=== PATIENT | female | born 1965 | race Caucasian/White ===

== ENCOUNTER 2017-03-16 21:47 | Emergency (ER) | payer OTHER ==
[~2017-03-16] VITALS: Ht 165.1 cm; Wt 70.9 kg
[2017-03-16 21:49] VITALS: BP 145/88; PULSE 70; RESP 16; O2SAT 100
--- NOTE | 2017-03-16 22:00 | ED.REPORT ---
HPI-Chest Pain 40 and Over Date of Service Mar 16, 2017 ED Provider: Dr. Bowman A 51 year old female with no significant history presents to the ED with rapid heart rate that began suddenly at 2200 this evening while she was sitting down. She felt as though she has had a "gas bubble" across her chest with associated chest pressure, palpitations, lightheadedness, shortness of breath and nausea. The symptoms lasted for approximately three minutes. This is her third episode of similar symptoms. When seen in ED, still has chest pressure but feels better , heart is not racing. The patient was seen once by her PCP for this, but did not arrange follow up. She denies history of hypertension, hyperlipidemia, diabetes or smoking. Nursing Notes Chief Complaint: Chest Pain Nursing Notes Reviewed: Yes Allergies: Coded Allergies: No Known Allergies (Unverified Allergy, Unknown, 05/25/14) General Time Seen by MD: 21:59 Chief Complaint Other (Palpitations) Hx Obtained From: Patient Arrived By: Walk-in Sudden in Onset?: Yes Onset Occurred: Just prior to arrival Symptom Duration: Since onset Recent Healthcare: No recent hospitalization, Recent doctor visit Similar Sx Previous: No Past Medical History Past Medical History Denies: Diabetes mellitus, Hyperlipidemia, Hypertension Past Surgical History Reports: Hysterectomy Smoking History Never Smoker Social History Alcohol Use: "Social" Other Social History: Good social support, Ambulatory Status Independent Review of Systems Respiratory: Reports: Shortness of breath Cardiovascular: Reports: Chest pain ("heaviness"), Palpitations GI: Reports: Nausea, Denies: Abdominal pain, Vomiting Skin: Denies Diaphoresis Neurologic: Reports: Lightheaded Complete sys rev & neg: except as marked. Physical Exam Initial Vital Signs Vital Signs (First) Date Time Temp Pulse Resp B/P Pulse Ox O2 Delivery O2 Flow Rate FiO2 03/16/17 21:49 36.8 70 16 145/88 100 Room Air Initial VS: Reviewed Head / Eyes: Atraumatic, Normocephalic ENT: Mucous membranes moist Extremities: Vascular intact, Neuro intact Skin: Warm, Dry Neurologic: Alert, Oriented Psychiatric: Mood/affect normal General/Constitutional: Awake, Alert, Well appearing Respiratory / Chest: Breath sounds = bilat, No respiratory distress Cardiovascular: Heart rate NL, Regular rhythm, Heart sounds NL, No gallop, No murmurs, No rubs Abdomen: Soft, Non-tender, BS normoactive Interpretation & Diagnostics Lab Results Interpretation Result Diagram: 03/16/17219903/16/[id number] Test 03/16/17 22:00 03/17/17 00:15 White Blood Count 6.4th/mm3 (3.8-10.1) Red Blood Count 3.82mil/mm3 (3.90-5.20) Hemoglobin 12.0g/dL (12.0-15.6) Hematocrit 36.2% (35.0-46.0) Mean Corpuscular Volume 94.8fL (81-100) Mean Corpuscular Hemoglobin 31.4pg (27.0-35.0) Mean Corpuscular Hemoglobin Concent 33.1% (32.0-37.0) Red Cell Distribution Width 12.8% (12.3-15.4) Platelet Count 206bil/L (150-400) Neutrophils (%) (Auto) 38.3% (40-74) Lymphocytes (%) (Auto) 46.2% (14-46) Monocytes (%) (Auto) 11.4% (4-12) Eosinophils (%) (Auto) 3.3% (0-5) Basophils (%) (Auto) 0.6% (0-3) D-Dimer < 0.50mg/L FEU (<0.50) Sodium Level 141mEq/L (134-144) Potassium Level 3.7mEq/L (3.5-5.2) Chloride Level 105mEq/L (97-108) Carbon Dioxide Level 20mmol/L (18-29) Blood Urea Nitrogen 19mg/dL (6-24) Creatinine 0.62mg/dL (0.57-1.00) Estimat Glomerular Filtration Rate 145mL/min (>59) Glucose Level 128mg/dL (60-99) Calcium Level 9.3mg/dL (8.5-10.1) Magnesium Level 2.0mg/dL (1.6-2.6) Total Bilirubin 0.4mg/dL (0.0-1.2) Aspartate Amino Transf (AST/SGOT) 16U/L (0-50) Alanine Aminotransferase (ALT/SGPT) 13U/L (0-32) Alkaline Phosphatase 44U/L (25-150) Total Protein 7.0g/dL (6.4-8.4) Albumin 4.3g/dL (3.4-5.0) ECG Interpretation Time: 10:00 Interpreted by: ED physician Normal ECG Interpretation: Normal sinus rhythm (60) X-Ray Chest Interpretation Chest Xray Interpretation: no acute disease Interpretation / Wet Read by: Wet read ED physician Re-Eval/Medical Decision Time of Eval: 23:35 Patient Status: Condition improved Re-Evaluation/Progress Note: Patient is feeling better with relief of symptoms. Plan for discharge is discussed. The patient understands and agrees with the plan. All questions have been answered at this time. Counseled Regarding: Diagnosis, Lab results, Need for follow-up, When/why to return to ED Discharge & Departure Primary Impression: Chest pain Chest pain type: precordial pain Qualified Code: R07.2 - Precordial pain Additional Impression: Palpitations Disposition: Home Discharge Condition All VS Reviewed: Yes Condition: Stable Patient Instructions: Chest Pain (ED) Additional Instructions: Emergency Department evaluation included interview, examination, ECG labs and chest x-ray. No evidence for a serious heart or lung problem is identified today, episodes of a rapid heart rate are suggestive of an abnormal heart rhythm , at present heart rhythm and normal it will be important to have an EKG done while symptomatic. Follow-up with primary care as soon as possible, they may be able to refer you for an ambulatory heart monitor which could also be helpful. We are symptomatic, if possible check your pulse noting the rate and whether pulse is regular or irregular. Return to emergency department if you have recurrent symptoms. Referrals: AMINA HALL MD Attestation Portions of this note were transcribed by Simon Tavares and Courtney Castillo. I, Dr. Bowman personally performed the history, physical exam and medical decision- making; I reviewed and confirmed the accuracy of the information in the transcribed note. Signed by: Ladonna Bro, 03/17/17 and 0027. copies to: AMINA HALL MD, Donald L MD Mar 16, 2017 22:00 Simon Tavares Mar 16, 2017 22:32 COURTNEY CASTILLO Mar 17, 2017 00:25 Yasmany Bowman MD Mar 16, 2017 22:00 Simon Tavares Mar 16, 2017 22:32 COURTNEY CASTILLO Mar 17, 2017 00:25
[2017-03-16 22:14] LABS: BASOPHILS % (AUTO) 0.6 % (0-3); EOSINOPHILS % (AUTO) 3.3 % (0-5); MONOCYTES % (AUTO) 11.4 % (4-12); Mean Corpuscular Hemoglobin 31.4 pg (27.0-35.0); Mean Corpuscular Volume 94.8 fL (81-100); NEUTROPHILS % (AUTO) 38.3 % (40-74); Platelet Count 206 bil/L (150-400)
[2017-03-16 22:34] LABS: TROPONIN T 0.01 ug/L (0.0-0.011)
[2017-03-17 00:39] VITALS: PULSE 58; RESP 16; O2SAT 98
[2017-03-17 01:30] VITALS: BP 119/64; PULSE 62; RESP 16; O2SAT 98
--- NOTE | 2017-03-17 08:55 | DRSVH ---
PROCEDURE: X-RAY CHEST ONE VIEW, PORTABLE ([id number]) INDICATIONS: chest pain, difficulty breathing TECHNIQUE: One view of the chest was acquired. COMPARISON: None. FINDINGS: Surgical changes and devices: None. Lungs and pleura: No pleural effusions or pneumothorax. Lungs are clear. Mediastinum: Mediastinal contours appear normal. Heart size is normal. Bones and chest wall: No suspicious bony lesions. Overlying soft tissues appear unremarkable. IMPRESSION: No acute cardiopulmonary disease. Dictated by: Jameson Archer [facility] Interpreted: Mani Boyd MD on 03/17/2017 at 8:54 Transcribed by: SOLOMON on 03/17/2017 at 8:54 Approved by: Mani Boyd M.D. on 03/17/2017 at 15:39
== END 2017-03-17 01:31 | disposition home or self-care (01) ==
LOC: SED 21:47
DX: R07.2 Precordial pain (principal); R00.2 Palpitations

== ENCOUNTER 2017-04-22 16:16 | Emergency (ER) | payer OTHER ==
[~2017-04-22] VITALS: Ht 165.1 cm; Wt 69.5 kg
[2017-04-22 16:18] VITALS: BP 125/81; PULSE 58; RESP 16; O2SAT 99
[2017-04-22] MEDS ORDERED: diphenhydrAMINE 25 mg Capsule PO ONE (16:20)
--- NOTE | 2017-04-22 17:42 | ED.REPORT ---
HPI-Allergic Reaction Date of Service Apr 22, 2017 ED Provider: Gabriel Dupree PAC Nursing Notes Stated Complaint: POSS ALLERGIC REACTION Chief Complaint: Allergic Reaction Nursing Notes Reviewed: Yes Allergies: Coded Allergies: No Known Allergies (Verified Allergy, Unknown, 04/22/17) General Time Seen by MD: 16:32 Chief Complaint Swelling throat Pt. reports onset of feeling of tongue swelling after receiving steroid injection in R wrist at 2PM. Symptoms now resolved after PO benadryl. No known previous ADR to steroids. Hx Obtained From: Patient Arrived By: Walk-in Onset Occurred: 1 - 4 hours ago Context of Onset: New medication Symptom Duration: Since onset Progression Since Onset: Improved after OTC med, Resolved Severity: Current: No pain currently Severity: Maximum: No pain Recent Healthcare: Recent doctor visit Similar Sx Previous: No Past Medical History Past Medical History R wrist tendonitis Past Surgical History Reports: Hysterectomy Smoking History Never Smoker Social History Alcohol Use: "Social" Other Social History: Good social support, Ambulatory Status Independent Review of Systems Constitutional: Denies: Chills, Fever Ears / Nose / Throat: Reports: Tongue swelling, Denies: Voice change Respiratory: Denies: Shortness of breath, Wheezing GI: Denies: Abdominal pain Neurologic: Denies: Focal weakness Complete sys rev & neg: except as marked. Physical Exam Initial Vital Signs Vital Signs (First) Date Time Temp Pulse Resp B/P Pulse Ox O2 Delivery O2 Flow Rate FiO2 04/22/17 16:18 36.4 58 16 125/81 99 Room Air Initial VS: Reviewed General/Constitutional: Awake, Alert, No acute distress Respiratory / Chest: Atraumatic, Breath sounds NL, Breath sounds = bilat, No respiratory distress Cardiovascular: Regular rhythm, Heart sounds NL Heart Rate / Rhythm: Positive: Bradycardia Skin: No rash Re-Eval/Medical Decision Med Decision/Clinical Course Spontaneously resolved allergic reaction to R wrist steroid injection, no need for further medical intervention at present. Advised PO benadryl at bedtime tonight. Return to ED if any problems. Counseled Regarding: Diagnosis, Need for follow-up, When/why to return to ED Discharge & Departure Shift Change Sign-Out Response to Therapy: Improved Primary Impression: Allergic reaction Encounter type: initial encounter Qualified Code: T78.40XA - Allergy, unspecified, initial encounter Disposition: Home Patient Instructions: General Allergic Reaction (ED) Additional Instructions: Take an oral Benadryl capsule tonight before bed. Follow up with your doctor tomorrow if not totally resolved. Return to ER if anything worsens. Referrals: AMINA HALL MD (PCP) 1 Day if not improving as expected EDSupervising Provider for APC: Akhil Mc Christopher R PAC Apr 22, 2017 17:42
[2017-04-22 17:54] VITALS: BP 117/74; PULSE 65; O2SAT 97
== END 2017-04-22 17:55 | disposition home or self-care (01) ==
LOC: SED 16:16
DX: R22.0 Localized swelling, mass and lump, head (principal); T38.0X5A Adverse effect of glucocorticoids and synthetic analogues, initial encounter; X58.XXXA Exposure to other specified factors, initial encounter; Y93.89 Activity, other specified; Y99.8 Other external cause status; Y92.019 Unspecified place in single-family (private) house as the place of occurrence of the external cause; M65.88 Other synovitis and tenosynovitis, other site; Z90.710 Acquired absence of both cervix and uterus; Z88.8 Allergy status to other drugs, medicaments and biological substances

== ENCOUNTER 2017-04-25 18:15 | Emergency (ER) | payer OTHER ==
[~2017-04-25] VITALS: Ht 165.1 cm; Wt 69.1 kg
[2017-04-25 18:28] VITALS: BP 128/80; PULSE 73; RESP 16; O2SAT 96
--- NOTE | 2017-04-25 18:50 | ED.REPORT ---
HPI-Abd Pain F 40 and Over Date of Service Apr 25, 2017 ED Provider: Kim Perea History of Present Illness: 51-year-old female here for epigastric pain for over a month. Today it worsened and she was eating a few bites of lettuce and vomited there was a few what she thinks to be blood streaks in her emesis. For the last month she would feel full after just a few bites of food, and have abdominal bloating after just a few bites of food. She saw her doctor and got a trial of ranitidine with no results. Her doctor did blood as well but has not reviewed this with her. She is having constipation and taking stool softener laxatives for this. She did have a firm BM today. She feels like her upper abdomen is not talking to her lower abdomen she states. No history of GI surgeries beside the hysterectomy and C-sections. No fever or urinary symptoms. Pain increases after eating and feels tight and squeezing around her upper abdomen Nursing Notes Stated Complaint: THREW UP BLOOD Chief Complaint: Female Abdominal Pain Nursing Notes Reviewed: Yes Allergies: Coded Allergies: prednisone (Verified Allergy, Mild, 04/25/17) Scheduled Pantoprazole DR (Protonix) 20 Mg Tablet 20 MG PO BID General Time Seen by MD: 18:43 Chief Complaint Abdominal pain, Vomiting mild Hx Obtained From: Patient Arrived By: Walk-in Sudden in Onset?: No Onset Occurred: More than a week ago... (1 month) Context of Onset: Eating Symptom Duration: Waxes and wanes Progression since Onset: Intermittent Location: : Epigastric Severity: Current: Moderate Severity: Maximum: Severe Associated with: Reports: Nausea, Vomiting Pertinent Negative: Pt denies other symptoms Recent Healthcare: Recent doctor visit Similar Sx Previous: Yes Past Medical History Past Medical History R wrist tendonitis Past Surgical History Reports: Hysterectomy Smoking History Never Smoker Social History Alcohol Use: "Social" Other Social History: Good social support, Ambulatory Status Independent Review of Systems Basic Review of Systems Eyes: Vision NL, No discharge ENT: Hearing NL, No pain, No nasal congestion, No pharyngeal pain Hematologic: No bleeding, No bruising Endocrine: No cold intolerance, No heat intolerance, No weight gain, No weight loss Skin: No bruising, No rash, No itch Allergy / Immune: No allergy Neurologic: NL mental status, No weakness, No numbness Psychiatric: Normal thought content Constitutional: Denies: Chills, Fatigue, Fever Respiratory: Denies: Dyspnea on exertion, Non-productive cough Cardiovascular: Denies: Chest pain, Edema GI: Reports: Abdominal pain, Constipation, Hematochezia, Nausea, Vomiting, Denies: Diarrhea, Melena Female: Denies: Dysuria Musculoskeletal: Denies: Back pain Complete sys rev & neg: except as marked. Physical Exam Vital Signs Vital Signs (First) Date Time Temp Pulse Resp B/P Pulse Ox O2 Delivery O2 Flow Rate FiO2 04/25/17 18:28 36.9 73 16 128/80 96 Room Air Initial VS: Reviewed, Vital signs normal General/Constitutional: Awake, Alert Respiratory / Chest: Breath sounds NL, Breath sounds = bilat, No respiratory distress, No rales, No rhonchi, No wheezing, No stridor Cardiovascular: Heart rate NL, Regular rhythm, Heart sounds NL, Peripheral circulation NL Abdomen: Atraumatic, Soft, No guarding, No rebound, BS normoactive, No distention, No hernia, No palpable mass, No pulsatile mass Tenderness/Guarding/Rebound: Positive: Tender LUQ... (Mild), Tender RUQ... ( Mild), Tender epigastric Back: Inspection NL, Non-tender, No CVA tenderness Head / Eyes: Normocephalic, PERRL Skin: Color NL, Warm, Dry, Turgor NL Interpretation & Diagnostics Lab Results Interpretation Result Diagram: 04/25/17184904/25/[id number] Test 04/25/17 18:50 White Blood Count 5.7th/mm3 (3.8-10.1) Red Blood Count 4.03mil/mm3 (3.90-5.20) Hemoglobin 12.6g/dL (12.0-15.6) Hematocrit 37.5% (35.0-46.0) Mean Corpuscular Volume 93.1fL (81-100) Mean Corpuscular Hemoglobin 31.3pg (27.0-35.0) Mean Corpuscular Hemoglobin Concent 33.6% (32.0-37.0) Red Cell Distribution Width 12.6% (12.3-15.4) Platelet Count 244bil/L (150-400) Neutrophils (%) (Auto) 55.2% (40-74) Lymphocytes (%) (Auto) 33.0% (14-46) Monocytes (%) (Auto) 9.4% (4-12) Eosinophils (%) (Auto) 1.7% (0-5) Basophils (%) (Auto) 0.7% (0-3) Sodium Level 139mEq/L (134-144) Potassium Level 3.8mEq/L (3.5-5.2) Chloride Level 102mEq/L (97-108) Carbon Dioxide Level 23mmol/L (18-29) Blood Urea Nitrogen 15mg/dL (6-24) Creatinine 0.64mg/dL (0.57-1.00) Estimat Glomerular Filtration Rate 140mL/min (>59) Glucose Level 121mg/dL (60-99) Calcium Level 9.3mg/dL (8.5-10.1) Magnesium Level 2.2mg/dL (1.6-2.6) Total Bilirubin 0.6mg/dL (0.0-1.2) Aspartate Amino Transf (AST/SGOT) 17U/L (0-50) Alanine Aminotransferase (ALT/SGPT) 14U/L (0-32) Alkaline Phosphatase 51U/L (25-150) Total Protein 7.6g/dL (6.4-8.4) Albumin 4.3g/dL (3.4-5.0) Lipase 52U/L (13-60) Hold Ayala Top Tube Received (Received) X-Ray Abdominal Interpretation PROCEDURE: X-RAY ACUTE ABDOMINAL SERIES ([id number]) INDICATIONS: abd pain TECHNIQUE: One view chest and two views of the abdomen were acquired. COMPARISON: None. FINDINGS: Surgical changes and devices: None. Chest: Lungs are clear. Heart size is normal. No pleural effusions. No pneumoperitoneum. Abdomen: Bowel gas pattern is normal. No suspicious calcifications. Visualized solid organ contours appear normal. Bones: No suspicious bony lesions. IMPRESSION: No source of current abdominal pain is found. Mild colonic obstipation. Re-Eval/Medical Decision Med Decision/Clinical Course US TEch reports normal US. report not back by time of d/c. Patient pain free after GI cocktail. We will refer her to GI for further study she needs an upper endoscopy. Discharge & Departure Shift Change Sign-Out Laboratory Evaluation: Lab evaluation discussed Imaging Studies: Imaging discussed Response to Therapy: Improved Primary Impression: GERD (gastroesophageal reflux disease) Esophagitis presence: esophagitis presence not specified Qualified Code: K21.9 - Gastro-esophageal reflux disease without esophagitis Additional Impression: Constipation Constipation type: unspecified constipation type Qualified Code: K59.00 - Constipation, unspecified Disposition: Home Discharge Condition All VS Reviewed: Yes Condition: Stable Patient Instructions: Gastritis (ED) Additional Instructions: Take prescription medication as directed for 2 weeks. Follow-up with your PCP this week. You should make an appointment with GI for an upper endoscopy and further evaluation. Return if fevers, severe pain or worsening in condition at all. Otherwise light diet that is bland in small amounts. Treat her constipation with stool softeners and laxatives as discussed. Increase exercise and fluid intake Referrals: AMINA HALL MD (PCP) EDSupervising Provider for APC: Clint Syed MD copies to: AMINA HALL MD, Linnea K ARNP Apr 25, 2017 18:50
[2017-04-25] MEDS ORDERED: LidocaineVisc 2%:Antacid 1:1 10 mL Syringe PO SCH (19:00)
[2017-04-25 19:04] LABS: BASOPHILS % (AUTO) 0.7 % (0-3); EOSINOPHILS % (AUTO) 1.7 % (0-5); MONOCYTES % (AUTO) 9.4 % (4-12); Mean Corpuscular Hemoglobin 31.3 pg (27.0-35.0); Mean Corpuscular Volume 93.1 fL (81-100); NEUTROPHILS % (AUTO) 55.2 % (40-74); Platelet Count 244 bil/L (150-400)
[2017-04-25 19:28] LABS: Magnesium 2.2 mg/dL (1.6-2.6)
--- NOTE | 2017-04-25 19:31 | DRSVH ---
PROCEDURE: X-RAY ACUTE ABDOMINAL SERIES ([id number]) INDICATIONS: abd pain TECHNIQUE: One view chest and two views of the abdomen were acquired. COMPARISON: None. FINDINGS: Surgical changes and devices: None. Chest: Lungs are clear. Heart size is normal. No pleural effusions. No pneumoperitoneum. Abdomen: Bowel gas pattern is normal. No suspicious calcifications. Visualized solid organ contour s appear normal. Bones: No suspicious bony lesions. IMPRESSION: No source of current abdominal pain is found. Mild colonic obstipation. Dictated by: Mani Boyd M.D. on 04/25/2017 at 19:29 Approved by: Mani Boyd M.D. on 04/25/2017 at 19:29
[2017-04-25] MEDS ORDERED: LidocaineVisc 2%:Antacid 1:1 10 mL Syringe PO ONE (20:15)
[2017-04-25] MEDS ORDERED: PANT20T PO (20:38)
[2017-04-25 20:52] VITALS: BP 112/77; PULSE 74; RESP 16; O2SAT 97
--- NOTE | 2017-04-25 21:12 | DRSVH ---
PROCEDURE: US ABDOMEN ([id number]) INDICATIONS: epigastric pain TECHNIQUE: Real-time scanning was performed of the abdominal and retroperitoneal organs, with image documentatio n. COMPARISON: [facility], CR, XR ABD ACUTE SERIES 3VW, 04/25/2017, 19:14. FINDINGS: Liver: Liver is normal in size and homogeneous in echotexture. Gallbladder: There is no sign of biliary obstruction or acute cholecystitis. A small gallbladder wa ll polyp is present measuring 4 mm. Biliary ducts: Intrahepatic bile ducts are non-dilated. Extrahepatic bile duct caliber measures 6.3 mm. Normal is 6-7 mm or less in diameter, or 10 mm or less post-cholecystectomy. Pancreas: Visualized portions of the pancreas are sonographically normal. Spleen: Spleen is normal in size and homogeneous in echotexture. Kidneys: Kidneys are normal in size and echotexture. Right kidney measures 9.9 cm long; left kidney measures 12.2 cm long. No hydronephrosis or nephrolithiasis. No solid masses. The left kidney con tains 2 cysts, simple, the largest of which measures up to 3.5 cm Aorta: Visualized aorta is normal in caliber at less than 3 cm. Iliacs: Poorly seen due to overlying bowel gas IVC: Intrahepatic inferior vena cava is patent. Miscellaneous: No free abdominal fluid. IMPRESSION: Single 4 mm polyp gallbladder wall, no sign of biliary obstruction or acute cholecystiti s. 2 simple cysts at the left kidney, 3.5 cm in maximal dimension but simple in appearance. Finally , the iliac arteries could not be seen due to bowel gas. A definite source for current epigastric pa in and tenderness is not found. Dictated by: Mani Boyd M.D. on 04/25/2017 at 21:08 Approved by: Mani Boyd M.D. on 04/25/2017 at 21:10
== END 2017-04-25 20:54 | disposition home or self-care (01) ==
LOC: SED 18:15
DX: K21.9 Gastro-esophageal reflux disease without esophagitis (principal); K59.00 Constipation, unspecified; Z88.8 Allergy status to other drugs, medicaments and biological substances

== ENCOUNTER 2017-05-19 21:06 | Emergency (ER) | payer OTHER ==
[~2017-05-19] VITALS: Ht 165.1 cm; Wt 65.9 kg
[~2017-05-19 21:06] MED LIST: PANT20T PO
[2017-05-19 21:09] VITALS: BP 126/92; PULSE 60; RESP 15; O2SAT 100
[2017-05-19 21:39] VITALS: BP 122/76
--- NOTE | 2017-05-19 22:06 | ED.REPORT ---
HPI-General Illness Date of Service May 19, 2017 ED Provider: Yosvany Garnett Patient is an otherwise healthy 51 year old female who presents to the ED complaining of palpitations onset just prior to arrival. Associated symptoms include feeling shaky and L arm numbness. She denies chest pain, SOB, vomiting, hematemesis, or any other symptoms. Nursing Notes Stated Complaint: RAPID HEART BEAT Chief Complaint: General Complaint Nursing Notes Reviewed: Yes Allergies: Coded Allergies: prednisone (Verified Allergy, Mild, 05/19/17) Scheduled Pantoprazole DR (Protonix) 20 Mg Tablet 20 MG PO BID General Time Seen by MD: 22:06 Chief Complaint Other (palptations ) Hx Obtained From: Patient Arrived By: Walk-in Sudden in Onset?: Yes Onset Occurred: 1 - 4 hours ago Severity: Current: No pain currently Severity: Maximum: No pain Pertinent Negative: Pt denies other symptoms Past Medical History Past Medical History R wrist tendonitis Past Surgical History Reports: Hysterectomy Smoking History Never Smoker Social History Alcohol Use: "Social" Other Social History: Good social support, Ambulatory Status Independent Review of Systems Full Review of Systems Respiratory: Denies: Shortness of breath Cardiovascular: Reports: Palpitations, Denies: Chest pain GI: Denies: Vomiting Neurologic: Reports: Numbness (L arm ), Shaking Complete sys rev & neg: except as marked. Physical Exam Vital Signs Vital Signs Date Time Temp Pulse Resp B/P Pulse Ox O2 Delivery O2 Flow Rate FiO2 05/19/17 23:53 36.7 74 14 124/74 98 Room Air 05/19/17 21:39 122/76 05/19/17 21:09 36.7 60 15 126/92 100 Room Air Initial VS: Reviewed, Vital signs normal Head / Eyes: Atraumatic, Normocephalic Neck: Full range of motion Skin: Warm, Dry Neurologic: Alert, Oriented, Nonfocal Psychiatric: Mood/affect normal, Behavior normal, Normal thought content General/Constitutional: Awake, Alert, No acute distress, Well appearing, Well developed, Well hydrated Respiratory / Chest: Breath sounds NL, Breath sounds = bilat, No respiratory distress Cardiovascular: Heart rate NL, Regular rhythm, Heart sounds NL, No gallop, No murmurs, No rubs Lower Extremity / Pelvis / MS: No edema No cords peripherally Interpretation & Diagnostics Lab Results Interpretation Result Diagram: 05/19/17222405/19/172224 Test 05/19/17 22:25 05/19/17 22:55 White Blood Count 5.3th/mm3 (3.8-10.1) Red Blood Count 3.83mil/mm3 (3.90-5.20) Hemoglobin 12.0g/dL (12.0-15.6) Hematocrit 35.8% (35.0-46.0) Mean Corpuscular Volume 93.5fL (81-100) Mean Corpuscular Hemoglobin 31.3pg (27.0-35.0) Mean Corpuscular Hemoglobin Concent 33.5% (32.0-37.0) Red Cell Distribution Width 12.6% (12.3-15.4) Platelet Count 198bil/L (150-400) Neutrophils (%) (Auto) 47.8% (40-74) Lymphocytes (%) (Auto) 38.1% (14-46) Monocytes (%) (Auto) 10.8% (4-12) Eosinophils (%) (Auto) 2.5% (0-5) Basophils (%) (Auto) 0.8% (0-3) Prothrombin Time 11.4sec (8.1-12.5) Prothromb Time International Ratio 1.06ratio Activated Partial Thromboplast Time 25.0sec (22.8-33.0) Sodium Level 139mEq/L (134-144) Potassium Level 3.7mEq/L (3.5-5.2) Chloride Level 102mEq/L (97-108) Carbon Dioxide Level 25mmol/L (18-29) Blood Urea Nitrogen 14mg/dL (6-24) Creatinine 0.61mg/dL (0.57-1.00) Estimat Glomerular Filtration Rate 148mL/min (>59) Glucose Level 121mg/dL (60-99) Calcium Level 9.5mg/dL (8.5-10.1) Magnesium Level 2.1mg/dL (1.6-2.6) Total Bilirubin 0.5mg/dL (0.0-1.2) Aspartate Amino Transf (AST/SGOT) 17U/L (0-50) Alanine Aminotransferase (ALT/SGPT) 13U/L (0-32) Alkaline Phosphatase 49U/L (25-150) Troponin T 0.010ug/L (0.0-0.011) Pro-B-Type Natriuretic Peptide 106.1pg/mL (0-249) Total Protein 7.2g/dL (6.4-8.4) Albumin 4.2g/dL (3.4-5.0) Thyroid Stimulating Hormone (TSH) 3.460uIU/mL (0.450-4.500) Free Thyroxine 1.20ng/dL (0.82-1.77) Hold Ayala Top Tube Received (Received) Hold Urine Received (Received) ECG Interpretation ECG Interpretation: Sinus rate 68 Time: 22:06 Interpreted by: ED physician X-Ray Chest Interpretation Chest Xray Interpretation: negative View: Portable, 1 view Interpretation / Wet Read by: Interpret - ED physician Re-Eval/Medical Decision Med Decision/Clinical Course 51-year-old history of anxiety presents with palpitations tonight. these have been self-limited, and not observed here. Labs are reassuring including normal electrolytes and magnesium. Thyroid functions were normal. There may or may not above dysrhythmia, but she describes a tachycardic event that was likely sinus tachycardia. PSVT cannot be excluded at this point. Home for follow-up with PCP and Holter monitoring if symptoms are persistent/recurrent. Time of Eval: 23:26 Re-Evaluation/Progress Note: Discussed plan for discharge. Patient understands and agrees with plan. All questions addressed at this time. Counseled Regarding: Diagnosis, Lab results, Need for follow-up, When/why to return to ED Discharge & Departure Primary Impression: Palpitations Additional Impression: Anxiety Disposition: Home Discharge Condition All VS Reviewed: Yes Condition: Improved Additional Instructions: We did not detect any abnormalities of your rhythm during your observation period here. Your labs are reassuring. Cardiogram is normal. This may just have been a stress response, and may have been an actual rhythm disturbance such as SVT. If you continue to have problems with this, follow up with your doctor for a Holter monitor exam. Return anytime for sustained rapid beats, so the we can record them. Referrals: AMINA HALL MD (PCP) Scribe Attestation Portions of this note were transcribed by Alaina Woodson. I, Dr. Garnett personally performed the history, physical exam and medical decision-making; I reviewed and confirmed the accuracy of the information in the transcribed note. Signed by: Alaina Woodson 05/19/2017, [id number] copies to: AMINA HALL MD, Christopher W MD May 19, 2017 22:06 ALAINA WOODSON May 19, 2017 22:12
[2017-05-19] MEDS ORDERED: 0.9% Sodium Chloride 1,000 ML IV ONE (22:11)
[2017-05-19 22:46] LABS: BASOPHILS % (AUTO) 0.8 % (0-3); EOSINOPHILS % (AUTO) 2.5 % (0-5); MONOCYTES % (AUTO) 10.8 % (4-12); Mean Corpuscular Hemoglobin 31.3 pg (27.0-35.0); Mean Corpuscular Volume 93.5 fL (81-100); NEUTROPHILS % (AUTO) 47.8 % (40-74); Platelet Count 198 bil/L (150-400)
[2017-05-19 23:00] LABS: INR 1.06 ratio
[2017-05-19 23:05] LABS: TROPONIN T 0.01 ug/L (0.0-0.011)
[2017-05-19 23:16] LABS: Magnesium 2.1 mg/dL (1.6-2.6)
[2017-05-19 23:53] VITALS: BP 124/74; PULSE 74; RESP 14; O2SAT 98
--- NOTE | 2017-05-20 08:48 | DRSVH ---
PROCEDURE: X-RAY CHEST ONE VIEW, PORTABLE ([id number]) INDICATIONS: palpitations TECHNIQUE: One view of the chest was acquired. COMPARISON: [facility], CR, XR CHEST 1VW (PORTABLE), 03/16/2017, 22:02. FINDINGS: Surgical changes and devices: None. Lungs and pleura: No pleural effusions or pneumothorax. Lungs are clear. Mediastinum: Mediastinal contours appear normal. Heart size is normal. Bones and chest wall: No suspicious bony lesions. Overlying soft tissues appear unremarkable. IMPRESSION: No acute cardiopulmonary disease. Dictated by: Jameson Archer [facility] Interpreted: Nadine Bentley MD on 05/20/2017 at 8:46 Transcribed by: TL on 05/20/2017 at 8:47 Approved by: Nadine Bentley MD, PhD on 05/20/2017 at 9:46
== END 2017-05-19 23:54 | disposition home or self-care (01) ==
LOC: SED 21:06
DX: R00.2 Palpitations (principal); F41.9 Anxiety disorder, unspecified; Z88.8 Allergy status to other drugs, medicaments and biological substances
CPT/HCPCS: 36415; 71010; 80053; 83735; 83880; 84439; 84443; 84484; 85025; 85610; 85730; 93005; 96360; 99285; J7030

== ENCOUNTER 2017-06-11 01:33 | Emergency (ER) | payer OTHER ==
[~2017-06-11] VITALS: Ht 165.1 cm; Wt 64.5 kg
[2017-06-11 01:37] VITALS: BP 125/79; PULSE 57; RESP 16; O2SAT 100
--- NOTE | 2017-06-11 01:58 | ED.REPORT ---
HPI-Dyspnea / Wheezing Date of Service Jun 11, 2017 ED Provider: Clint Syed MD A 52 year old female with a history of hypertension presents to the ED complaining of shortness of breath. The pt woke one ho with sudden onset shortness of breath. She then became chilled and shaky, though she believes that these symptoms may have been related to anxiety. The denies heartburn symptoms such as burning in her throat during this episode, as well as nausea or fever. The pt took Tums, which helped to relieve her symptoms. In the ED, the pt's initial symptoms have resolved and she is only complaining of a dry mouth and mild cough. She has also experienced a 15 pound weight loss since 2016, but does not believe that this is related. Nursing Notes Stated Complaint: DIFFICULTY BREATHING Chief Complaint: Respiratory Complaints Nursing Notes Reviewed: Yes ([place], [facility] not reconciled) Allergies: Coded Allergies: prednisone (Verified Allergy, Mild, 06/11/17) Scheduled Pantoprazole DR (Protonix) 20 Mg Tablet 20 MG PO BID General Time Seen by MD: 01:57 Chief Complaint Shortness of breath Hx Obtained From: Patient Arrived By: Walk-in Sudden in Onset?: Yes Onset Occurred: 1 - 4 hours ago Recent Healthcare: Recent doctor visit Similar Sx Previous: No Risk Factors PE Risk Stratification No Coagulation Disorder, No Estrogen Medicine / BCP's, No [place], No Immobilization, No Malignancy, No , No , No Previous DVT, No Previous PE, No Surgery Last 60 Days, No Trauma Risk factors reviewed, No risk factors Past Medical History Past Medical History Notes: 4 ED visits in past 2 months Past Medical History R wrist tendonitis Reports: Hypertension Past Surgical History Reports: Hysterectomy Smoking History Never Smoker Social History Alcohol Use: "Social" Other Social History: Good social support, Ambulatory Status Independent Review of Systems Review of Systems Note: dry mouth Constitutional: Reports: Chills, Recent wt loss, Denies: Fever Respiratory: Reports: Non-productive cough, Shortness of breath Cardiovascular: Denies: Chest pain Musculoskeletal: Denies: Back pain, Neck pain Skin: Denies Rash Complete sys rev & neg: except as marked. GI: Denies: Abdominal pain, Nausea Physical Exam Initial Vital Signs Vital Signs (First) Date Time Temp Pulse Resp B/P Pulse Ox O2 Delivery O2 Flow Rate FiO2 06/11/17 01:37 36.8 57 16 125/79 100 Room Air Initial VS: Reviewed, Vital signs normal General/Constitutional: Awake, Alert Neck: Atraumatic, Supple, Full range of motion Respiratory / Chest: Atraumatic, Breath sounds NL, Breath sounds = bilat, No respiratory distress Cardiovascular: Heart rate NL, Regular rhythm, Heart sounds NL ENT: Atraumatic, Airway patent, Mucous membranes moist Abdomen: Atraumatic, Soft, Non-tender Back: Atraumatic, Full range of motion Lower Extremity / Pelvis / MS: Atraumatic, Full range of motion Skin: Atraumatic, Color NL, No rash, Warm, Dry Neurologic: Oriented X3, Speech NL, No motor deficits, No sensory deficits Head / Eyes: Atraumatic, Normocephalic, PERRL, EOMI Upper Extremity / MS: Atraumatic, Full range of motion Psychiatric: Affect NL, Mood NL Interpretation & Diagnostics X-Ray Chest Interpretation Chest Xray Interpretation: no acute findings Interpretation / Wet Read by: Interpret - ED physician Re-Eval/Medical Decision Med Decision/Clinical Course This is a pleasant 52-year-old female who presents complaining of an episode of shortness of breath or she was woken suddenly from sleep with a sense of suffocation. Symptoms were transient and have resolved, but she was afraid to go back to sleep so came to the emergency department. She does report that she has had being worked up for an unexplained epigastric discomfort in 15 pound weight loss, has had negative endoscopy and CT imaging, but has outpatient laboratories for reevaluation of the pancreas ordered for later today. She reports she generally been doing well, had no symptoms prior to going to sleep. She has been diagnosed with recent GERD, so she did take an antacid after this event happened-but she did not have the clear reflux symptoms she has had before. She does not have a prior history of laryngeal spasm or asthma. She has no risk factors for PE or venous thromboembolism. On exam she appears well, vitals are normal. She is anxious. Lungs are clear no bronchospasm, abdomen soft and nontender. EKG, chest x-ray, labs have been ordered, but had not been completed and the patient's being turned over to Dr. Xie pending review of laboratory studies. Source of Hx: Old records Differential Diagnosis: Positive: Acute coronary syndrome Counseled Regarding: Diagnosis, Need for follow-up, When/why to return to ED Discharge & Departure Shift Change Sign-Out Patient Care Transferred: Yes Discussed Complaint(s): Yes Laboratory Evaluation: Ordered, not yet done Imaging Studies: Ordered, not yet done Impression: Primary Impression: Dyspnea Dyspnea type: unspecified Qualified Code: R06.00 - Dyspnea, unspecified Disposition: Home Discharge Condition All VS Reviewed: Yes Condition: Stable Referrals: AMINA HALL MD (PCP) Care Transferred to: Dr Xie Care Transferred at: 03:00 Ladonna Attestation Portions of this note were transcribed by Courtney Castillo. I, Dr. Syed personally performed the history, physical exam and medical decision-making; I reviewed and confirmed the accuracy of the information in the transcribed note. Signed by: Ladonna Vogel, 06/11/2017 and 0200. copies to: AMINA HALL MD, Matthew F MD Jun 11, 2017 01:57 COURTNEY CASTILLO Jun 11, 2017 02:05
[2017-06-11 03:27] LABS: BASOPHILS % (AUTO) 0.3 % (0-3); EOSINOPHILS % (AUTO) 1.5 % (0-5); Mean Corpuscular Hemoglobin 31.3 pg (27.0-35.0); Mean Corpuscular Volume 94.3 fL (81-100); NEUTROPHILS % (AUTO) 63.6 % (40-74); Platelet Count 218 bil/L (150-400)
[2017-06-11 04:37] LABS: TROPONIN T 0.01 ug/L (0.0-0.011)
--- NOTE | 2017-06-11 08:10 | DRSVH ---
PROCEDURE: X-RAY CHEST, TWO VIEWS ([id number]) INDICATIONS: SHORT OF BREATH TECHNIQUE: 2 views of the chest were acquired. COMPARISON: 05/19/2017 FINDINGS: Surgical changes and devices: None. Lungs and pleura: No pleural effusions or pneumothorax. Lungs are clear. Mediastinum: Mediastinal contours are normal. Heart size is normal. Bones and chest wall: No suspicious bony abnormalities. Soft tissues appear unremarkable. IMPRESSION: Normal chest Findings are concordant with the preliminary reading. Dictated by: Catracho Quezada M.D. on 06/11/2017 at 8:07 Approved by: Catracho Quezada M.D. on 06/11/2017 at 8:08
== END 2017-06-11 05:08 | disposition home or self-care (01) ==
LOC: SED 01:33
DX: R06.00 Dyspnea, unspecified (principal); R68.2 Dry mouth, unspecified; I10 Essential (primary) hypertension; Z88.8 Allergy status to other drugs, medicaments and biological substances

== ENCOUNTER 2017-06-23 04:47 | Emergency (ER) | payer OTHER ==
[~2017-06-23] VITALS: Ht 165.1 cm; Wt 64.5 kg
[2017-06-23 04:51] VITALS: BP 132/70; PULSE 57; RESP 16; O2SAT 100
--- NOTE | 2017-06-23 05:03 | ED.REPORT ---
HPI-General Illness Date of Service Jun 23, 2017 ED Provider: Sabas Xie MD Pt is a 52 y/o female w/ a hx of HTN presenting to the ED due to chronic "dehydration" onset 2 months ago. For the past 2 months, the patient has been experiencing dry mouth, trouble swallowing secondary to dry mouth, 20 pound weight loss, malnutrition, dry eyes, constipation, inability to swat, abdominal bloating and intermittent pain. She came to the ED tonight because she woke up from sleep experiencing muscle cramping. She has been seeing her PCP and is being tested for SIBO (small intestine bacterial overgrowth). She has had a reportedly fairly large workup thus far including CT scans and endoscopy which were negative. She is drinking 6-8 bottles of water each day without relief. Pt denies diarrhea, fever. Nursing Notes Stated Complaint: POSSIBLE DEHYDRATION Chief Complaint: General Complaint Nursing Notes Reviewed: Yes Allergies: Coded Allergies: prednisone (Verified Allergy, Mild, 06/11/17) Scheduled Pantoprazole DR (Protonix) 20 Mg Tablet 20 MG PO BID General Time Seen by MD: 04:51 Chief Complaint Multip medical complaints Hx Obtained From: Patient Arrived By: Walk-in Sudden in Onset?: Yes Onset Occurred: 1 - 4 hours ago Symptom Duration: Since onset Severity: Current: Mild Severity: Maximum: Moderate Recent Healthcare: Recent doctor visit, Recent testing, Previous diagnosis, Prior workup Similar Sx Previous: No Past Medical History Past Medical History Notes: 5 ED visits in past 2 months Past Medical History R wrist tendonitis Chronic symptoms of dehydration - currently being worked up for SIBO by PCP Hypertension Past Surgical History Endoscopy Reports: Hysterectomy Smoking History Never Smoker Social History Alcohol Use: "Social" Other Social History: Good social support, Ambulatory Status Independent Review of Systems +dry mouth, dry eyes, inability to sweat, abdominal bloating Full Review of Systems Constitutional: Reports: Recent wt loss, Denies: Fever GI: Reports: Constipation, Denies: Diarrhea Complete sys rev & neg: except as marked. Physical Exam Vital Signs Vital Signs Date Time Temp Pulse Resp B/P Pulse Ox O2 Delivery O2 Flow Rate FiO2 06/23/17 06:27 64 22 101/65 100 Room Air 06/23/17 05:51 51 14 112/54 97 Room Air 06/23/17 04:51 36.4 57 16 132/70 100 Room Air Initial VS: Reviewed, Vital signs normal Head / Eyes: Atraumatic, Normocephalic, PERRL ENT: Mucous membranes moist, Conjunctiva normal, No scleral icterus Neck: Supple, Full range of motion Respiratory: Breath sounds normal, Clear to auscultation, No respiratory distress Cardiovascular: Regular rate & rhythm, Heart sounds normal, Intact distal pulses Abdomen / GI: Soft, Non-tender Extremities: Vascular intact, Neuro intact, No swelling Skin: Warm, Dry, No cyanosis Neurologic: Alert, Oriented, Nonfocal Psychiatric: Mood/affect normal, Behavior normal, Normal thought content General/Constitutional: Awake, Alert, No acute distress, Well appearing, Cooperative, Not toxic appearing Distress / Hydration: Positive: Dehydration mild Interpretation & Diagnostics Lab Results Interpretation Result Diagram: 06/23/17 0500 06/23/17 0500 Test 06/23/17 05:00 06/23/17 06:00 White Blood Count 6.3th/mm3 (3.8-10.1) Red Blood Count 4.30mil/mm3 (3.90-5.20) Hemoglobin 13.7g/dL (12.0-15.6) Hematocrit 41.0% (35.0-46.0) Mean Corpuscular Volume 95.3fL (81-100) Mean Corpuscular Hemoglobin 31.9pg (27.0-35.0) Mean Corpuscular Hemoglobin Concent 33.4% (32.0-37.0) Red Cell Distribution Width 13.6% (12.3-15.4) Platelet Count 240bil/L (150-400) Neutrophils (%) (Auto) 62.8% (40-74) Lymphocytes (%) (Auto) 25.4% (14-46) Monocytes (%) (Auto) 10.0% (4-12) Eosinophils (%) (Auto) 1.3% (0-5) Basophils (%) (Auto) 0.3% (0-3) Sodium Level 141mEq/L (134-144) Potassium Level 3.8mEq/L (3.5-5.2) Chloride Level 102mEq/L (97-108) Carbon Dioxide Level 25mmol/L (18-29) Blood Urea Nitrogen 10mg/dL (6-24) Creatinine 0.69mg/dL (0.57-1.00) Estimat Glomerular Filtration Rate 128mL/min (>59) Glucose Level 109mg/dL (60-99) Calcium Level 9.6mg/dL (8.5-10.1) Magnesium Level 2.4mg/dL (1.6-2.6) Total Bilirubin 0.8mg/dL (0.0-1.2) Aspartate Amino Transf (AST/SGOT) 16U/L (0-50) Alanine Aminotransferase (ALT/SGPT) 14U/L (0-32) Alkaline Phosphatase 55U/L (25-150) Total Protein 7.9g/dL (6.4-8.4) Albumin 4.6g/dL (3.4-5.0) Re-Eval/Medical Decision Med Decision/Clinical Course 52-year-old female with nonspecific symptoms of dehydration, weight loss, dry mouth etc. Initial labs were ordered and her care is turned over change of shift to Dr. Syed. Source of Hx: Old records Counseled Regarding: Diagnosis, Lab results Discharge & Departure Primary Impression: Dehydration Discharge Condition All VS Reviewed: Yes Condition: Stable Referrals: AMINA HALL MD (PCP) Care Transferred to: Dr. Syed Care Transferred at: 06:00 Scribe Attestation Portions of this note were transcribed by Krunal Zhong. I, Dr. Xie personally performed the history, physical exam and medical decision-making; I reviewed and confirmed the accuracy of the information in the transcribed note. copies to: AMINA HALL MD, Sabas Guy MD Jun 23, 2017 05:03 KRUNAL ZHONG Jun 23, 2017 05:11
[2017-06-23 05:22] LABS: BASOPHILS % (AUTO) 0.3 % (0-3); EOSINOPHILS % (AUTO) 1.3 % (0-5); Mean Corpuscular Hemoglobin 31.9 pg (27.0-35.0); Mean Corpuscular Volume 95.3 fL (81-100); NEUTROPHILS % (AUTO) 62.8 % (40-74); Platelet Count 240 bil/L (150-400)
[2017-06-23 05:51] VITALS: BP 112/54; PULSE 51; RESP 14; O2SAT 97
[2017-06-23 05:51] LABS: Magnesium 2.4 mg/dL (1.6-2.6)
[2017-06-23 06:27] VITALS: BP 101/65; PULSE 64; RESP 22; O2SAT 100
[2017-06-23] MEDS ORDERED: 0.9% Sodium Chloride 1,000 ML IV ONE (07:45)
[2017-06-23 09:27] VITALS: BP 108/68; PULSE 66; RESP 20; O2SAT 100
== END 2017-06-23 09:29 | disposition home or self-care (01) ==
LOC: SED 04:47
DX: E86.0 Dehydration (principal); E46 Unspecified protein-calorie malnutrition; H57.8 Other specified disorders of eye and adnexa; K59.00 Constipation, unspecified; R14.0 Abdominal distension (gaseous); R10.9 Unspecified abdominal pain; R25.2 Cramp and spasm; I10 Essential (primary) hypertension; Z98.890 Other specified postprocedural states; Z88.8 Allergy status to other drugs, medicaments and biological substances
CPT/HCPCS: 36415; 80053; 83735; 84300; 85025; 96360; 99284; J7030

== ENCOUNTER 2017-07-10 17:58 | Emergency (ER) | payer OTHER ==
[~2017-07-10] VITALS: Ht 165.1 cm; Wt 64.1 kg
[2017-07-10 18:01] VITALS: BP 93/55; PULSE 81; RESP 20; O2SAT 97
--- NOTE | 2017-07-10 19:30 | ED.REPORT ---
HPI-Syncope Date of Service Jul 10, 2017 ED Provider: History of Present Illness: 52-year-old female here for presyncope. Patient has had insomnia for one week, she is unsure why, she thinks it is high cortisol levels. She has not slept more than an hour or 2 for 7 nights. She feels exhausted. She has a prescription for trazodone that she has not started yet. Today she was walking down the stairs and she felt weak and had a presyncopal episode. She fell onto her right hip. Did not pass out. Neighbor saw this and was concerned and had her brought into the emergency room. While standing at registration she felt weak again and had to sit down quickly but did not pass out. She denies head pain, shortness of breath, chest pain. She denies nausea or vomiting. She is currently being treated for CIBO for which she is being treated by her director product safety with herbs. Her abdominal pain is not worse today. She is able to eat and drink. She does not feel orthostatic. She states she just feels exhausted from not sleeping. Nursing Notes Stated Complaint: DIZZY, FAINTED AND FELL ON STAIRS Chief Complaint: General Complaint Nursing Notes Reviewed: Yes Allergies: Coded Allergies: lidocaine (Verified Allergy, Mild, dyaphoresis, shaking, 07/10/17) prednisone (Verified Allergy, Mild, 06/11/17) Scheduled Pantoprazole DR (Protonix) 20 Mg Tablet 20 MG PO BID General Time Seen by Provider: 19:30 Chief Complaint Almost passed out Hx Obtained From: Patient Arrived By: Walk-in Onset Occurred: Just prior to arrival Context of Onset: Occurred at home Symptom Duration: Waxes and wanes Progression Since Onset: Gradually improving Severity: Current: No pain currently Severity: Maximum: No pain Recent Healthcare: Recent doctor visit Similar Sx Previous: Yes Past Medical History Past Medical History Notes: 5 ED visits in past 2 months Past Medical History R wrist tendonitis Chronic symptoms of dehydration - currently being worked up for SIBO by PCP Hypertension cibo- bowel infection treating with herbs Past Surgical History Endoscopy Reports: Hysterectomy Smoking History Never Smoker Social History Alcohol Use: "Social" Other Social History: Good social support, Ambulatory Status Independent Review of Systems Constitutional: Denies: Chills, Fatigue, Fever Eyes: Denies: Blurred bilateral, Visual loss bilateral Respiratory: Denies: Dyspnea on exertion, Non-productive cough, Pleuritic pain Cardiovascular: Denies: Chest pain, Edema GI: Denies: Abdominal pain, Diarrhea, Nausea, Vomiting Musculoskeletal: Denies: Back pain Neurologic: Reports: Lightheaded, Denies: Change LOC Psychiatric: Denies: Anxiety Complete sys rev & neg: except as marked. Physical Exam Initial Vital Signs Vital Signs (First) Date Time Temp Pulse Resp B/P Pulse Ox O2 Delivery O2 Flow Rate FiO2 07/10/17 18:01 36.7 81 20 93/55 97 Room Air Initial VS: Reviewed, Vital signs normal General/Constitutional: Awake, Alert, Well appearing Respiratory / Chest: Breath sounds NL, Breath sounds = bilat, No respiratory distress, No rales, No rhonchi, No wheezing Cardiovascular: Heart rate NL, Regular rhythm, Heart sounds NL, No murmurs, Cap refill not delayed, Peripheral circulation NL Lower Extremity / Pelvis / MS: Inspection NL, No swelling, Non-tender, No erythema, No deformity, Neurologic intact, Vascular intact, No edema Neurologic: Oriented X3, Speech NL, No motor deficits, No sensory deficits, CN II - XII intact, Reflexes equal bilat, Cerebellar NL Head / Eyes: Normocephalic, PERRL, No nystagmus, Conjunctiva NL ENT: Airway patent, Mucous membranes moist, Pharynx NL Abdomen: Soft, Non-tender, No guarding, No rebound Skin: Color NL, Warm, Dry, Turgor NL Interpretation & Diagnostics Lab Results Interpretation Result Diagram: 07/10/17192407/10/171924 Test 07/10/17 19:25 White Blood Count 9.4th/mm3 (3.8-10.1) Red Blood Count 4.14mil/mm3 (3.90-5.20) Hemoglobin 13.1g/dL (12.0-15.6) Hematocrit 39.7% (35.0-46.0) Mean Corpuscular Volume 95.9fL (81-100) Mean Corpuscular Hemoglobin 31.6pg (27.0-35.0) Mean Corpuscular Hemoglobin Concent 33.0% (32.0-37.0) Red Cell Distribution Width 13.5% (12.3-15.4) Platelet Count 255bil/L (150-400) Neutrophils (%) (Auto) 64.5% (40-74) Lymphocytes (%) (Auto) 23.6% (14-46) Monocytes (%) (Auto) 10.4% (4-12) Eosinophils (%) (Auto) 1.0% (0-5) Basophils (%) (Auto) 0.4% (0-3) Sodium Level 137mEq/L (134-144) Potassium Level 4.3mEq/L (3.5-5.2) Chloride Level 100mEq/L (97-108) Carbon Dioxide Level 24mmol/L (18-29) Blood Urea Nitrogen 17mg/dL (6-24) Creatinine 0.70mg/dL (0.57-1.00) Estimat Glomerular Filtration Rate 126mL/min (>59) Glucose Level 103mg/dL (60-99) Calcium Level 9.4mg/dL (8.5-10.1) Magnesium Level 2.2mg/dL (1.6-2.6) Total Bilirubin 0.5mg/dL (0.0-1.2) Aspartate Amino Transf (AST/SGOT) 12U/L (0-50) Alanine Aminotransferase (ALT/SGPT) 11U/L (0-32) Alkaline Phosphatase 55U/L (25-150) Total Protein 7.3g/dL (6.4-8.4) Albumin 4.3g/dL (3.4-5.0) Lipase 44U/L (13-60) Hold Ayala Top Tube Received (Received) Re-Eval/Medical Decision Med Decision/Clinical Course Patient states she wants to leave. Patient not orthostatic or hypotensive.. Discussed risk of leaving without full workup. Patient will go home and rest and see if her symptoms improve. She will return immediately if syncopal episodes chest pain, headaches or worsening condition Patient left prior to signing her paperwork I did discuss her discharge instructions with her. She understood what not doing a work up meds, she accepts responsibility for this and she felt like she could just go home and sleep and follow up if worsening. Discharge & Departure Shift Change Sign-Out Laboratory Evaluation: Lab evaluation discussed Procedures: Results discussed Response to Therapy: Improved Impression: Primary Impression: Pre-syncope Additional Impression: Insomnia Insomnia type: unspecified Qualified Code: G47.00 - Insomnia, unspecified Disposition: Home Discharge Condition All VS Reviewed: Yes Condition: Stable Patient Instructions: Near Syncope (ED) Additional Instructions: Monitor symptoms, treatment for insomnia. Return if symptoms worsen, he gets syncope, fever, headaches or any other change in symptoms. Referrals: Nancy Douglass ND (PCP) EDSupervising Provider for APC: Stoney Duong Linnea K ARNP Jul 10, 2017 19:30
[2017-07-10] MEDS ORDERED: 0.9% Sodium Chloride 1,000 ML IV ONE (19:45)
[2017-07-10 19:55] LABS: BASOPHILS % (AUTO) 0.4 % (0-3); MONOCYTES % (AUTO) 10.4 % (4-12); Mean Corpuscular Hemoglobin 31.6 pg (27.0-35.0); Mean Corpuscular Volume 95.9 fL (81-100); NEUTROPHILS % (AUTO) 64.5 % (40-74); Platelet Count 255 bil/L (150-400)
[2017-07-10 20:16] LABS: Magnesium 2.2 mg/dL (1.6-2.6)
== END 2017-07-10 20:23 | disposition home or self-care (01) ==
LOC: SED 17:58
DX: R55 Syncope and collapse (principal); G47.00 Insomnia, unspecified; Z90.710 Acquired absence of both cervix and uterus; Z88.8 Allergy status to other drugs, medicaments and biological substances

== ENCOUNTER 2017-07-25 04:41 | Emergency (ER) | payer OTHER ==
[~2017-07-25] VITALS: Ht 165.1 cm; Wt 64.5 kg
[2017-07-25 04:48] VITALS: BP 103/57; PULSE 65; RESP 12; O2SAT 98
--- NOTE | 2017-07-25 04:58 | ED.REPORT ---
HPI-General Illness Date of Service Jul 25, 2017 ED Provider: Dr. Garnett The pt is a 52 y/o female with a hx of HTN and IBS who presents to the ED complaining of palpitations that woke her up an hour ago. Associated sx include weakness and fatigue. She also reports mild chest discomfort but associates that with indigestion. The pt denies trying vagal maneuvers prior to arrival. Nursing Notes Stated Complaint: HEART RACING Chief Complaint: Dysrhythmia/Cardiac Nursing Notes Reviewed: Yes Allergies: Coded Allergies: lidocaine (Verified Adverse Reaction, Mild, dyaphoresis, shaking, 07/25/17) prednisone (Verified Adverse Reaction, Mild, 07/25/17) Scheduled Pantoprazole DR (Protonix) 20 Mg Tablet 20 MG PO BID General Time Seen by MD: 04:58 Chief Complaint Other (palpitations) Hx Obtained From: Patient Arrived By: Walk-in Sudden in Onset?: Yes Onset Occurred: 1 - 4 hours ago Symptom Duration: 1 - 4 hours Location: : Chest Quality: Painful Radiation: : Does not radiate Severity: Current: Mild Severity: Maximum: Mild Recent Healthcare: Recent doctor visit Similar Sx Previous: Yes Past Medical History Past Medical History Notes: 5 ED visits in past 2 months Past Medical History R wrist tendonitis Chronic symptoms of dehydration - currently being worked up for SIBO by PCP Hypertension cibo- bowel infection treating with herbs Past Surgical History Endoscopy Reports: Hysterectomy Smoking History Never Smoker Social History Alcohol Use: "Social" Other Social History: Good social support, Ambulatory Status Independent Review of Systems Full Review of Systems Constitutional: Reports: Fatigue, Weakness - generalized Cardiovascular: Reports: Chest pain (mild), Palpitations Complete sys rev & neg: except as marked. Physical Exam Vital Signs Vital Signs Date Time Temp Pulse Resp B/P Pulse Ox O2 Delivery O2 Flow Rate FiO2 07/25/17 06:09 56 25 102/63 97 Room Air 07/25/17 04:48 36.5 65 12 103/57 98 Room Air Initial VS: Reviewed Head / Eyes: Atraumatic, Normocephalic, PERRL ENT: Mucous membranes moist, Conjunctiva normal, No scleral icterus Neck: Supple, Non-tender, Full range of motion Respiratory: Breath sounds normal, Clear to auscultation, No respiratory distress Cardiovascular: Regular rate & rhythm, Heart sounds normal, Intact distal pulses Abdomen / GI: Soft, Non-tender, No guarding, No rebound, No distention Extremities: Vascular intact, Neuro intact, No swelling, No tenderness Skin: Warm, Dry, No cyanosis Neurologic: Alert, Oriented, Nonfocal General/Constitutional: Awake, Alert, No acute distress, Well appearing, Cooperative Interpretation & Diagnostics Lab Results Interpretation Result Diagram: 07/25/17 0455 07/25/17 0455 Test 07/25/17 04:55 White Blood Count 7.3th/mm3 (3.8-10.1) Red Blood Count 4.21mil/mm3 (3.90-5.20) Hemoglobin 13.4g/dL (12.0-15.6) Hematocrit 40.1% (35.0-46.0) Mean Corpuscular Volume 95.2fL (81-100) Mean Corpuscular Hemoglobin 31.8pg (27.0-35.0) Mean Corpuscular Hemoglobin Concent 33.4% (32.0-37.0) Red Cell Distribution Width 14.0% (12.3-15.4) Platelet Count 280bil/L (150-400) Neutrophils (%) (Auto) 55.1% (40-74) Lymphocytes (%) (Auto) 33.0% (14-46) Monocytes (%) (Auto) 9.4% (4-12) Eosinophils (%) (Auto) 1.7% (0-5) Basophils (%) (Auto) 0.7% (0-3) Sodium Level 141mEq/L (134-144) Potassium Level 4.2mEq/L (3.5-5.2) Chloride Level 104mEq/L (97-108) Carbon Dioxide Level 22mmol/L (18-29) Blood Urea Nitrogen 12mg/dL (6-24) Creatinine 0.55mg/dL (0.57-1.00) Estimat Glomerular Filtration Rate 166mL/min (>59) Glucose Level 96mg/dL (60-99) Calcium Level 9.0mg/dL (8.5-10.1) Magnesium Level 2.2mg/dL (1.6-2.6) Total Bilirubin 0.6mg/dL (0.0-1.2) Aspartate Amino Transf (AST/SGOT) 12U/L (0-50) Alanine Aminotransferase (ALT/SGPT) 12U/L (0-32) Alkaline Phosphatase 49U/L (25-150) Troponin T 0.010ug/L (0.0-0.011) Pro-B-Type Natriuretic Peptide 115.8pg/mL (0-249) Total Protein 6.7g/dL (6.4-8.4) Albumin 3.9g/dL (3.4-5.0) Thyroid Stimulating Hormone (TSH) 4.690uIU/mL (0.450-4.500) Free Thyroxine 1.36ng/dL (0.82-1.77) ECG Interpretation ECG Interpretation: Normal sinus rhythm. Rate 61. Time: 05:02 Interpreted by: ED physician Re-Eval/Medical Decision Med Decision/Clinical Course 52-year-old with intermittent rapid palpitations that sound like PSVT. We have not been able to capture this with a rhythm strip and a Holter exam would be helpful. She was invited to return promptly if she has sustained beats. Valsalva was also demonstrated to allow her to try and terminate these on her own. They seem to be self-limited in any case. No abnormal findings on her lab except for a trivially elevated TSH with a normal free T4. Discharged in stable condition. Time of Eval: 05:05 Re-Evaluation/Progress Note: Discussed diagnosis and plan to discharge depending on the lab results. The pt understands and agrees with the plan. All questions answered. F/U instruction and RTER warning given. All questions addressed. Counseled Regarding: Diagnosis, Lab results, Need for follow-up, When/why to return to ED Discharge & Departure Primary Impression: Palpitations Disposition: Home Discharge Condition All VS Reviewed: Yes Condition: Stable Patient Instructions: Palpitations (ED) Referrals: AMINA HALL MD (PCP) Scribe Attestation Portions of this note were transcribed by Priscila Curry. I,, personally performed the history,physical exam and medical decision-making;I reviewed and confirmed the accuracy of the information in the transcribed note. Signed by Ladonna Hansen. 07/25/17 copies to: AMINA HALL MD, Christopher W MD Jul 25, 2017 04:58 Priscila Curry Jul 25, 2017 05:10
[2017-07-25 05:10] LABS: BASOPHILS % (AUTO) 0.7 % (0-3); EOSINOPHILS % (AUTO) 1.7 % (0-5); MONOCYTES % (AUTO) 9.4 % (4-12); Mean Corpuscular Hemoglobin 31.8 pg (27.0-35.0); Mean Corpuscular Volume 95.2 fL (81-100); NEUTROPHILS % (AUTO) 55.1 % (40-74); Platelet Count 280 bil/L (150-400)
[2017-07-25 05:44] LABS: TROPONIN T 0.01 ug/L (0.0-0.011)
[2017-07-25 06:09] VITALS: BP 102/63; PULSE 56; RESP 25; O2SAT 97
[2017-07-25 06:13] LABS: Magnesium 2.2 mg/dL (1.6-2.6)
[2017-07-25 07:39] VITALS: BP 109/60; PULSE 58; RESP 12; O2SAT 95
[2017-07-30] MEDS ORDERED: Benzocaine-Menthol Lozenge 2/Pkg PO PRN (20:35)
[2017-07-30] MEDS ORDERED: Magnesium Hydroxide 10 mL Oral Concentration PO PRN (20:35)
[2017-07-30] MEDS ORDERED: Alum-Mag Hydrox-Simeth 30 mL Suspension PO PRN (20:35)
== END 2017-07-25 07:40 | disposition home or self-care (01) ==
LOC: SED 04:55
DX: R00.2 Palpitations (principal); I10 Essential (primary) hypertension; Z90.710 Acquired absence of both cervix and uterus; Z88.8 Allergy status to other drugs, medicaments and biological substances

== ENCOUNTER 2017-07-30 08:32 | Inpatient (IN) | payer MEDICAID, OTHER ==
[~2017-07-30] VITALS: Ht 165.1 cm; Wt 64.5 kg
[2017-07-30 08:57] VITALS: BP 101/73; PULSE 74; RESP 12; O2SAT 98
[2017-07-30] MEDS ORDERED: LORazepam 1 mg Tablet PO ONE (09:25)
--- NOTE | 2017-07-30 09:31 | ED.REPORT ---
HPI-Psychiatric Illness Date of Service Jul 30, 2017 ED Provider: Clint Syed MD Patient is a 52 year old female with a hx of HTN, depression, and insomnia Who presents to the ED via police s/p calling the crisis line and stating that she wanted to get a knife and kill herself. She reported having suicidal thoughts over the past week for which she reached out to [facility]. She states, "I just don't want to be here." Associated symptoms include insomnia and global weakness. She was able to sleep 3 hours total a night over the past few weeks with Xanax which has since stopped working. She has also gotten about 2 hours of sleep with trazodone previously. She reports an hour's worth of sleep over the last 3 days which was achieved with a Xanax at 0100 this morning. She is currently being worked up for angie's syndrome. She denies homicidal ideation , leg swelling, or any other symptoms. Pt takes citalopram 10mg daily. Nursing Notes Stated Complaint: SI Chief Complaint: Psychiatric Complaint Nursing Notes Reviewed: Yes Allergies: Coded Allergies: triamcinolone (Verified Allergy, Unknown, 07/30/17) lidocaine (Verified Adverse Reaction, Mild, dyaphoresis, shaking, 07/25/17) prednisone (Verified Adverse Reaction, Mild, 07/25/17) Scheduled Pantoprazole DR (Protonix) 20 Mg Tablet 20 MG PO BID General Time Seen by MD: 09:12 Chief Complaint Suicidal ideation Hx Obtained From: Patient Arrived By: Police Onset Occurred: 1 week ago Symptom Duration: Since onset Immunizations: Unknown Recent Healthcare: Recent doctor visit Risk-Psychiatric Illness Suicide Risk Stratification Suicide Risk Factors - Adult: No: Alcohol use, Previous attempt, Prior psych admission, Substance abuse RF Statements: Risk factors reviewed Past Medical History Past Medical History Notes: h/o multiple ED visits Patient reports being worked up for [place] by building manager Followed at [facility] Past Medical History R wrist tendonitis Chronic symptoms of dehydration - currently being worked up for SIBO by PCP Hypertension cibo- bowel infection treating with herbs Severe insomnia Depression Reports: GERD Past Surgical History Endoscopy Reports: Hysterectomy Smoking History Never Smoker Social History Alcohol Use: Denies alcohol use Drug Use: Denies drug use Other Social History: Good social support, Ambulatory Status Independent Review of Systems Cardiovascular: Denies: Edema Psychiatric: Reports: Insomnia, Suicidal ideation, Denies: Homicidal ideation Complete sys rev & neg: except as marked. Physical Exam Initial Vital Signs Vital Signs (First) Date Time Temp Pulse Resp B/P Pulse Ox O2 Delivery O2 Flow Rate FiO2 07/30/17 08:57 36.8 74 12 101/73 98 Room Air Initial VS: Reviewed, Vital signs normal Head / Eyes: Atraumatic, Normocephalic Neck: Supple, Full range of motion Respiratory: No respiratory distress Cardiovascular: Intact distal pulses Extremities: Vascular intact, Neuro intact Skin: Warm, Dry General/Constitutional: Awake, Alert Behavior: Positive: Anxious, Tearful No sign of intoxication or withdrawal Neurologic: Oriented X3, Speech NL Abnormal Mood/Affect: Positive: Anxious, Depressed Abnormal Thinking / Perception: Positive: Suicidal, with plan Reasonable insight, limited judgement Interpretation & Diagnostics Lab Results Interpretation Result Diagram: 07/30/17 1020 07/30/17 1020 Test 07/30/17 09:17 07/30/17 10:20 Hold Urine Received (Received) White Blood Count 8.4th/mm3 (3.8-10.1) Red Blood Count 3.85mil/mm3 (3.90-5.20) Hemoglobin 12.5g/dL (12.0-15.6) Hematocrit 36.7% (35.0-46.0) Mean Corpuscular Volume 95.3fL (81-100) Mean Corpuscular Hemoglobin 32.5pg (27.0-35.0) Mean Corpuscular Hemoglobin Concent 34.1% (32.0-37.0) Red Cell Distribution Width 13.7% (12.3-15.4) Platelet Count 258bil/L (150-400) Neutrophils (%) (Auto) 73.9% (40-74) Lymphocytes (%) (Auto) 15.0% (14-46) Monocytes (%) (Auto) 10.0% (4-12) Eosinophils (%) (Auto) 0.6% (0-5) Basophils (%) (Auto) 0.4% (0-3) Sodium Level 140mEq/L (134-144) Potassium Level 4.5mEq/L (3.5-5.2) Chloride Level 104mEq/L (97-108) Carbon Dioxide Level 25mmol/L (18-29) Blood Urea Nitrogen 13mg/dL (6-24) Creatinine 0.63mg/dL (0.57-1.00) Estimat Glomerular Filtration Rate 142mL/min (>59) Glucose Level 107mg/dL (60-99) Calcium Level 9.0mg/dL (8.5-10.1) Total Bilirubin 0.8mg/dL (0.0-1.2) Aspartate Amino Transf (AST/SGOT) 11U/L (0-50) Alanine Aminotransferase (ALT/SGPT) 11U/L (0-32) Alkaline Phosphatase 48U/L (25-150) Total Protein 6.3g/dL (6.4-8.4) Albumin 3.9g/dL (3.4-5.0) Thyroid Stimulating Hormone (TSH) 1.650uIU/mL (0.450-4.500) Re-Eval/Medical Decision Med Decision/Clinical Course This is a 52-year-old female presents with severe suicidal ideation and concern that if she leaves the department she thinks she will kill herself her go crazy , and is requesting admission. Forced herbal insomnia, reports been unrelieved with medications to trazodone, Xanax she has been using, and feels completely overwhelmed. She is appointment at [facility], but not for later this week. She denies alcohol or drug abuse. She has no additional complaints. She is tearful and withdrawn. She reports ongoing suicidal ideation, but admits to being say followed in the department. She again reiterated said that she does not feel safe leaving. Screening labs are normal. Patient seen by the BOILER [employer]MAN is working on voluntary placement. Patient being turned over to Dr. Belcher at change of shift. Source of Hx: Old records Consultation : Consulted With: composition worker Call Returned at: 13:00 Note: Discussed pt's case. Will call care center to review pt for admission Differential Diagnosis: Positive: Suicidal Discharge & Departure Shift Change Sign-Out Patient Care Transferred: Yes Discussed Complaint(s): Yes Laboratory Evaluation: Back, reviewed by me Impression: Primary Impression: Suicidal ideation Additional Impression: Insomnia Referrals: AMINA HALL MD (PCP) Care Transferred to: Dr. Belcher Care Transferred at: 15:26 Scribe Attestation Portions of this note were transcribed by Alaina Woodson. I, Dr. Syed personally performed the history, physical exam and medical decision-making; I reviewed and confirmed the accuracy of the information in the transcribed note. Signed by: Ladonna Alexander, 07/30/17 copies to: AMINA HALL MD, Matthew F MD Jul 30, 2017 09:31 ALAINA WOODSON Jul 30, 2017 10:16
[2017-07-30 10:32] LABS: BASOPHILS % (AUTO) 0.4 % (0-3); EOSINOPHILS % (AUTO) 0.6 % (0-5); Mean Corpuscular Hemoglobin 32.5 pg (27.0-35.0); Mean Corpuscular Volume 95.3 fL (81-100); NEUTROPHILS % (AUTO) 73.9 % (40-74); Platelet Count 258 bil/L (150-400)
[2017-07-30] MEDS ORDERED: CITA20TA11 PO (17:33)
[2017-07-30] MEDS ORDERED: ALPR0.5T8 PO (17:33)
[2017-07-30 17:40] VITALS: BP 99/70; PULSE 62; RESP 12; O2SAT 94
--- NOTE | 2017-07-30 21:09 | NUR ---
Admit Note Patient arrival on unit at 1853 via with hospital staff. Pt pre-approved for two days inpatient stay. Patient c/o exhaustion and being at wits end r/t insomnia. Events leading up to this admission include loosing job in March r/t lt wrist tendinitis, this was followed by medical issues such as R/O IBS, and angie syndrome currently being worked up at this time. Pt reports starting Citalopram 07/22. Pt currently c/o suicidal ideation and infrequent audio hallucinations. Reports insomnia is of highest concern at this time. Reports just 1-3 hours sleep nightly for the last month. Reports having tried Xanax and Trazodone with minimal affect for just a few days. Pt describes audio hallucination just last night of hearing music which got her out of bed. Pt reports zero interpersonal problems with family or friends.
[2017-07-30] MEDS ORDERED: Alum-Mag Hydrox-Simeth 30 mL Suspension PO PRN (21:10)
[2017-07-30] MEDS ORDERED: Magnesium Hydroxide 10 mL Oral Concentration PO PRN (21:15)
[2017-07-30] MEDS ORDERED: Benzocaine-Menthol Lozenge 2/Pkg PO PRN (21:15)
[2017-07-31] MEDS ORDERED: LORazepam 1 mg Tablet PO ONE (01:10)
--- NOTE | 2017-07-31 03:50 | NUR ---
Sleep Patient appeared to sleep for two hours from [id number] then awoke and reported zero sleep and requesting more medications. MD notified and orders obtained, but pt was noted to be asleep and remain asleep prior to arrival of medications. Continuing to monitor mood, behavior and emotional state. Q15 minute safety checks performed throughout the shift as ordered. CP
--- NOTE | 2017-07-31 14:39 | HP ---
[address] [address] HISTORY AND PHYSICAL PATIENT: JETT WALSH : 1965 MR#: [id number] ADMIT: 07/30/2017 JOB ID: [id number] IDENTIFICATION: The patient is a 52-year-old white female. Her works in the [employer] and she has two children and five grandchildren. 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 She lives in [place]. REASON FOR ADMISSION: Client admitted on a voluntary basis for suicidal ideation resulting from several days of insomnia. HISTORY OF PRESENT ILLNESS: Client presents today for evaluation and treatment of suicidal ideation and insomnia. I met with her for a 60 minute evaluation and reviewed course and records kept by [facility]. Client's main issue is anxiety. Co-occurring issues are insomnia and suicidal ideation after several days of insomnia. The condition is acute and has been developing over the last several months. It is present of a severe intensity, manifesting with symptoms of suicidal ideation (plan and client had an impulse to cut her wrists while she was cutting cantaloupe at the counter), insomnia, poor energy, and poor concentration. It is made worse by insomnia lasting more than 24 hours. It is improved when she has a good diet and is active in her life and in her relationships. She is currently presenting with no signs of emotional liability or cognitive deficits. Her insight is appropriate. She is having concern about her ability to cope and concern about impulse control should her coping skills fail. Client reported multiple symptoms of depression. She has been on Celexa to treat this depression as well as continues to struggle with low-level anxiety, sadness, difficulty with concentration, feelings of guilt, and now insomnia and suicidal ideation. REVIEW OF SYSTEMS: She denied psychiatric review of systems for ifeanyi, psychosis, trauma, or substance abuse. Physical review of systems was significant only for constitution, feeling poorly, but otherwise denies cardiac, respiratory, or genitourinary symptoms. Client is having multiple GI complaints and her primary care doctor is trying to treat irritable bowel syndrome of unknown etiology. MEDICATIONS: None. ALLERGIES: LIDOCAINE. ILLNESSES: History of hypertension, history of tendinitis. CURRENT WORKING DIAGNOSIS: Irritable bowel syndrome. FAMILY MEDICAL HISTORY: Noncontributory. PAST PSYCHIATRIC HISTORY: None. PSYCHOSOCIAL HISTORY: Client born and raised in the [facility]. Went to [employer]. History of trauma: None. Drug and alcohol: None. Lethality: No previous suicide attempts. She does not feel suicidal today. Relationship: to her for the past 21 years. Two children, three grandkids. Zoroastrianism: [employer]. Legal: None. PHYSICAL EXAMINATION: Vital signs within normal limits. Physical exam reviewed from ER and essentially normal. LABORATORY: CBC, liver, electrolytes, thyroid normal. UDS negative. MENTAL STATUS EXAMINATION: Neatly dressed, calm, pleasant. Good eye contact. Attitude was cooperative. Mood dysphoric and anxious. Affect congruent, with normal intensity. Thought process: Client is able to relate a coherent history. Her thought process is coherent, logical, and spontaneous. Thought content: There are themes of nonspecific anxiety. Client is tending to ruminate on her inability to sleep and how this leads to extreme feelings of stress. Client denied suicidal ideation, plan, or intent today. Alert and oriented to person, place, and date. Immediate, short, and long-term memory intact. Attention and concentration relatively normal. Insight and judgment good. Impulse control highly contained, yet rigid. Has a difficult time handling impulses of fear. Reality testing intact. Competence to handle current stressors is currently being overwhelmed. IMPRESSION: The patient is a 52-year-old white female who has successfully worked for the [employer] and raised a family. For unclear reasons she has had increasing symptoms of gastrointestinal (GI) distress. This has contributed to insomnia. After several weeks of insomnia she is having more and more feelings of dysphoria and on the day before admission had a strong impulse to end her life by cutting her wrists while she was at the kitchen. She came in for assessment and treatment and is really requesting help with sleep. Client did not have symptoms of a major mental illness syndrome. She has multiple symptoms related to depression, depressive conditions, and anxiety conditions, but no specific diagnosis. We talked about different short-term treatments for insomnia such as hypnotic sedatives, benzodiazepines, neuroleptics, and tricyclic antidepressants. She appeared to understand the relative risk and the relative benefits of these medications based on the questions we had during our discussion. She chose to briefly begin a trial of Seroquel and Ativan to target insomnia and Celexa to target depression. We talked about different sleep hygiene techniques that she could use once she was discharged. DIAGNOSIS: [place] I: Depression, unspecified. [place] II: Deferred. [place] III: Irritable bowel syndrome. [place] IV: Moderate. [place] V: Current Global Assessment of Functioning equal to 40. PLAN: Recommend client be admitted to our unit and be provided with a high degree of safety through the structure and active adult engagement that she has received here. We will have her work in one-to-one, unit, and group activities focused on improving coping skills, reality based thinking, and coming up with a safety plan should suicidal ideation recur after discharge. Recommend client continue on Celexa 20 daily for depression and start Ativan 1 mg h.s. and Seroquel 50 mg h.s. for insomnia. Would anticipate a 10-20 day trial on Seroquel and Ativan, and then transition to sleep aids with a decreased side effect profile. Anticipate three day stay.
[2017-07-31 16:20] VITALS: BP 111/68; PULSE 71; RESP 16
--- NOTE | 2017-07-31 17:43 | NUR ---
Roller Engraver/Counselor S:"I'm feeling better after sleeping last night." O: Patient denies any SI or HI, no AVH, rated her depression and anxiety at a 5. Patient slept for 6.25 hrs. A: Patient attended group and performed some breathing exercises as well as yoga. Patient rated her anxiety at a 5 after group, down from 7. She is pleasant and cooperative. Patient had a visit from her son and . P: Follow care plan and coordinate with outpatient providers.
--- NOTE | 2017-07-31 18:01 | NUR ---
[facility] Day Shift Pt maintained behavioral control throughout the shift. Pt affect appears mostly bright. Pt spends most of the shift interacting with peers and engaging in unit activities. Pt is pleasant with staff and peers when active on the unit. Pt attended community meeting in the AM and group activities throughout the shift. Pt attended all meals and ate approx 100% of all meals.
--- NOTE | 2017-07-31 18:43 | NUR ---
[id number]. nurs. S: "I was wondering about the celexa, I am feeling anxious but I don't want to take anything now see how I go, I am going to do some deep breathing, I just want to get this sleep thing under control and get these tests taken care of. it really helped getting good sleep after so long, not sleeping." O: Pt visited by family, reported positive visit, and family want her home. Pt out on unit and participating and interacting with some peers. Pt stating that she feels that she had "brought this on myself with her anxiety but want to get insomnia under control and follow up with outstanding medical tests and hopes to get back to her work or other work she has done before. P:CNCP
[2017-07-31] MEDS: LORazepam 1 mg Tablet PO SCH (20:29)
[2017-07-31] MEDS: Pantoprazole 20 mg ER24 Tablet PO SCH (20:29)
--- NOTE | 2017-08-01 04:44 | NUR ---
Nursing Noc Pt confirmed anxiety this shift and noted to be slightly resistant to trying medications. Medicated with Seroquel and Ativan for sleep this shift and explained availability of Ambien if needed. Pt has appeared to have slept through the night. Continuing to monitor mood, behavior and emotional state. Q15 minute safety checks through the night. CP
[2017-08-01] MEDS: Pantoprazole 20 mg ER24 Tablet PO SCH ×2 (08:30→20:30)
--- NOTE | 2017-08-01 08:45 | NUR ---
AM MED NOTE Pt declined pantoprazole 20 mg stating "I don't really have heartburn." Pt took citalopram 10 mg (1/2 tablet) instead of the scheduled 20 mg stating "I had been taking 10 mg at home. I'm not sure why Dr. Fuentes increased my dose." Will consult with Dr. Fuentes. Addendum: 08/01/17 at 0933 by FERN RIGGINS RN Pt took remaining 10 mg of citalopram at 0933 for a total of 20 mg.
[2017-08-01] MEDS ORDERED: Sodium Biphos-Phos 133 mL Enema RECTAL PRN (09:40)
--- NOTE | 2017-08-01 13:25 | PCM.PNPSY ---
Subjective Date of Service Aug 01, 2017 Subjective I spent 30 minutes both reviewing treatment plan with our clinical team, interviewing the patient and providing supportive/educational psychotherapy. I spent more than 50% of the time counseling the patient. I reviewed the treatment plan with the patient and discussed options available including the potential risks, benefits and side effects. Erica reports a slight improvement in thought organization and mood stability. Staff reports that she has been active and participating well in one-to-one unit and group activities. She slept 8 hours and denies suicidal ideation or psychotic symptoms review. She continues to feel highly anxious about abdominal discomfort. We talked about the upcoming GI workup and what this could potentially mean for her. We worked on a safety plan should suicidal ideation return as an outpatient. She denies medication side effects. She was able to identify her medications and what they were used to treat. Current Medications Current Medications Citalopram Hydrobromide 20 mg DAILY PO Last administered on 08/01/17 09:30; Admin Dose 10 MG; Start 08/01/17 at 08:30 Hydroxyzine Pamoate 50 mg Q4H PRN PO Last administered on 07/30/17 22:12; Admin Dose 50 MG; Start 07/30/17 at 21:15 Lorazepam 1 mg HS PO Last administered on 07/31/17 20:29; Admin Dose 1 MG; Start 07/31/17 at 21:00 Pantoprazole 20 mg BID PO Last administered on 07/31/17 20:29; Admin Dose 20 MG ; Start 07/31/17 at 20:30 Quetiapine Fumarate 25 mg HS PRN PO Last administered on 07/30/17 22:12; Admin Dose 25 MG; Start 07/30/17 at 21:15; Stop 07/31/17 at 13:33; Status DC Quetiapine Fumarate 50 mg HS PO Last administered on 07/31/17 20:30; Admin Dose 50 MG; Start 07/31/17 at 21:00 Zolpidem Tartrate 5 mg HS PRN PO Last administered on 07/30/17 21:28; Admin Dose 5 MG; Start 07/30/17 at 21:15 Mental Status Exam Appearance: Neat/well groomed Attitude: Pleasant, Cooperative Behavior: Overtly anxious Affect: Well Modulated/Appropriate Mood: Anxious, Fearful Thought Process/Associations: Logical/Sequential, Goal Directed Speech Production: Normal Speech Rate: Normal Speech Articulation: Normal Thought Content: Appropriate Danger to Self/Suicidal Ideati: None Danger to Others: None Consciousness: Alert Orientation: Person, Place, Situation Memory: Grossly Intact Estimate Intellectual Function: Average Attention/Concentration & Cogn: Grossly Intact Insight: Good Judgement: Good Result Diagram: 07/30/17 1020 07/30/17 1020 Mental Health Plan Erica is a 52-year-old white female who has successfully worked for the [employer] and raised a family. For unclear reasons she has had increasing symptoms of gastrointestinal (GI) distress. This has contributed to insomnia. After several weeks of insomnia she is having more and more feelings of dysphoria and on the day before admission had a strong impulse to end her life by cutting her wrists while she was at the kitchen. She came in for assessment and treatment and is really requesting help with sleep. She did complain of multiple symptoms related to depression, but did not qualify for a specific diagnosis. She slept well and responded to the combination of Seroquel and Ativan. She appeared to understand the relative risk and the relative benefits of these medications based on the questions we had during our discussion. She chose to continue Seroquel and Ativan to target insomnia and Celexa to target depression. We talked about different sleep hygiene techniques that she could use once she was discharged. We problem solved different life stressors that she was trying to cope with As well as worked on a safety plan should suicidal ideation recur as an outpatient. [place] DIAGNOSIS: [place] I: Depression, unspecified. [place] II: Deferred. [place] III: Irritable bowel syndrome. [place] IV: Moderate. [place] V: Current Global Assessment of Functioning equal to 40. Treatments Patient is being provided with a high degree of safety through our unit structure and active adult engagement provided by our mental health professionals, mental health technicians, psychiatric nurses and myself. We are focusing on developing improved coping skills and identifying stressors that may have led to current episode. We will attempt to: * Integrate into therapeutic groups, milieu and individual therapy. * Maintain in a closely monitored and structured unit * Provide low-stimulation environment * Obtain collateral data to assist in treatment planning * Assess degree of lability of affect and impulse control * Complete safety plan * Decrease frequency of relapse and need for re-hospitalization * Denies thoughts of harm to self and/or others * Establish a consistent sleep pattern * Medication effective in stabilization of mood and/or thought process * Reduce the risk of imminent harm to self and/or others by providing a safe environment * Tolerates medication without side effects Patient will be on the following psychiatric medications: Celexa 20 mg daily Seroquel 25-50 mg at bedtime when necessary insomnia Ativan 0.5 mg at bedtime when necessary insomnia Patient's legal status Voluntary Anticipated number of hospital days to achieve above goals: 3 Disposition: Home Mark Fuentes MD Aug 01, 2017 13:25
--- NOTE | 2017-08-01 16:06 | NUR ---
[id number]. nurs. S: "I think the celexa is making me more anxious, my heart is beating faster, it happened after I took the extra 12 Addendum: 08/01/17 at 1725 by ARIEL ZAMARRIPA RN continuing the note above. Delete the number 12 and pt stating that she felt these symptoms after taking the increased additional 10mg of 20mg dose. advised re pt's concern and stated will speak to pt tomorrow and wanted pt to be offered ativan for her immediate anxious episode. Pt declined stating symptoms had diminished and she would prefer to use deep breathing and did so. Earlier in day, pt reporting in pain with episode of constipation and px with evacuating stool and declined offered suppository but did request and used fleets enema with relief of px. Pt reports has perceived some improvement after 2 nights of sleep, but reports some head pressure, she feels is from the use a number of meds to tx her insomnia. Pt reports ongoing concern re dx and tx for her possible IBS px and further eval for cushings syn. or other pxs connected with raised cortisol levels. Pt is anticipating discharge shortly and states has not had any "strange thoughts or experiences" since her hospitalization. P:CNCP
[2017-08-01 16:32] VITALS: BP 97/70; PULSE 74; RESP 16
--- NOTE | 2017-08-01 16:35 | NUR ---
Bulk Filler/Counselor S:" I've been constipated for three days." O: Patient denies any SI or HI, no AVH, no anxiety and no depression. Patient did state that she just took medication for anx. A: Patient stated she's feeling better overall and hoping to discharge tomorrow. Friendly and cooperative, out on unit participating in activities. P: Follow care plan and coordinate with outpatient providers.
--- NOTE | 2017-08-01 17:42 | NUR ---
[facility] Day Shift Pt affect and behavior unchanged from previous shifts. Pt maintained behavioral control throughout the shift. Pt affect appears mostly bright. Pt spends most of the shift interacting with peers and engaging in unit activities. Pt is pleasant with staff and peers when active on the unit. Pt attended community meeting in the AM and lightly attended group activities throughout the shift. Pt attended all meals and ate approx 100% of all meals.
[2017-08-01] MEDS: LORazepam 1 mg Tablet PO SCH (21:04)
--- NOTE | 2017-08-02 02:32 | NUR ---
Nursing, NOC shift Patient in room reading a book at start of shift, pleasant and cooperative w/ direct eye contact. No reported suicidal ideations, denies anxiety at this time. Patient declined full HS seroquel dosage, opting for half of the 50mg ordered: "I talked to the doctor today, he said he would cut the dose in half. The meds I took last night dropped me." Seroquel 25mg given at HS. Will pass on to day RN to address w/ MD. Also declined HS Protonix dose. Accepted HS snack, watched movie afterward; smiling and laughing with select peers. Slept well thru the night. Continue with Q15 min safety and room checks thru the NOC.
[2017-08-02] MEDS: Pantoprazole 20 mg ER24 Tablet PO SCH (08:30)
--- NOTE | 2017-08-02 09:14 | NUR ---
Medications Pt refused morning medications. She stated "The Celexa made me feel awful. I don't want it. I haven't taken Protonix for a while. I am constipated. The enema works best." Pt received and self administered enema.
[2017-08-02] MEDS ORDERED: LORA-303 PO (11:12)
[2017-08-02] MEDS ORDERED: CITA10TA9 PO (11:12)
[2017-08-02] MEDS ORDERED: QUET25TA73 PO (11:12)
--- NOTE | 2017-08-02 11:32 | PCM.DIMED ---
Discharge Instructions Date of Service Aug 02, 2017 Dates of Hospitalization Jul 30, 2017 at 17:37 Discharge Diagnosis Discharge Diagnosis [place] I. Schizoaffective disorder. [place] II. Defer. [place] III. None. [place] IV. Moderate. [place] V. Current Global Assessment of Functioning equal to 45. Diet Discharge Diet: No restrictions Activity Discharge Activity: No restrictions Call your provider Call your provider for: Fever or Chills Patient Instructions Patient Instructions I Strongly encouraged patient to follow up with outpatient care: 1-Recommended patient takes medication as prescribed and not alter this unless under the direct care of a provider. 2-Recommend client refrain from recreational drugs and alcohol while taking psychiatric medications. 3-recommend patient attempt to find a therapist or group to develop coping skills to deal with overwhelming anxiety Follow-up plan Client to follow up with [facility] case aide [facility] 08/09/2017 at 1 PM client follow up with Dr Aceves 08/03/2017 at 10:20 AM Follow-up with PCP in: 2 weeks Mark Fuentes MD Aug 02, 2017 11:31
--- NOTE | 2017-08-02 12:24 | NUR ---
Nursing Discharge Note: Patient cooperative with discharge process. Acknowledges understanding of d/c instructions and has a copy with them upon leaving unit at 1215. Belongings accounted for and with patient. Prescriptions faxed to patients pharmacy at [facility] in [place]. Patient denies harmful thoughts and hallucinations at this time.
--- NOTE | 2017-08-02 15:51 | NUR ---
Supervisor [employer]/Counselor S:" I'm still constipated." O: Patient denies any SI or HI, no AVH, no anxiety or depression. A: Patient has been pleasant and cooperative, friendly and outgoing. Patient has interacted on the unit this morning. Patient has discharged at noon. She has been provided with a safety plan, all necessary discharge papers, and has follow up appts.scheduled with [facility] for tomorrow, 08/03/17. Patient was picked up by her and will return to her home. P: Follow discharge instructions.
--- NOTE | 2017-08-02 19:24 | DIS ---
[address] [address] DISCHARGE SUMMARY PATIENT: JETT WALSH : 1965 MR#: [id number] ADMIT: 07/30/2017 JOB ID: [id number] DIS: 08/02/2017 IDENTIFICATION: A 52-year-old, white female. Her works in a refinery. She has two children, five grandchildren. 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 She lives in [place]. REASON FOR ADMISSION: Suicidal ideation resulting from several days of insomnia. HISTORY OF PRESENT ILLNESS: A 52-year-old, white female, who successfully worked for the [employer] and raised a family. For unclear reasons, she has been having increasing symptoms of GI distress. She is in the middle of a medical workup for this. This contributed to insomnia due to anxiety and after several weeks of insomnia, she was having increasing feelings of dysphoria culminating in an impulse to end her life by cutting her wrists at the kitchen sink. She was admitted for stabilization, assessment and treatment. HOSPITAL COURSE: Client was admitted to our unit and was provided with a high degree of safety through the structure and active adult engagement that she received. We had her participate in one-to-one unit and group activities which focused on improving coping skills and developing a treatment plan and safety plan should suicidal ideation recur as an outpatient. Client participated well in all the above activities. She also was started on a combination of Celexa 20 mg per day for depression and was given three different medications for insomnia, Ativan, Seroquel and Ambien. With the combination of 25 of Seroquel and 0.5 of Ativan, she was able to sleep. She is requesting discharge today, and I believe this is appropriate. She denies suicidal ideation and gave me a reasonable safety plan. She is hopeful that after finding out more information about her abdominal distress, that her anxiety will decrease and her insomnia will improve. She did agree to follow up with both the therapist and a psychiatric provider to monitor her as an outpatient. MENTAL STATUS EXAM: Client neatly dressed, calm, pleasant, good eye contact. Mood euthymic. Affect congruent. Normal intensity. Thought process: Client is able to relate a coherent history, logical, coherent and spontaneous. Thought content: Themes of future planning, how to take care of herself and her physical needs. Denied suicidal ideation, plan, or intent. Insight and judgment markedly improved. Impulse control highly contained. Reality testing intact. Competence to handle current stressors appears to be at baseline. DISCHARGE DIAGNOSIS: [place] IDepression, unspecified. [place] IIDeferred. [place] IIIIrritable bowel syndrome. [place] IVModerate. [place] VCurrent GAF equal to 45. DISCHARGE PLAN: Client to follow up with Dr. Aceves, PCP, August 03, 2017 in [place]. Client to follow up with [facility] at [facility] lead case manager, [place], August 09, 2017 at 1 p.m. DISCHARGE MEDICATIONS: 1. Celexa 10 daily. 2. Seroquel 25 h.s. p.r.n. 3. Ativan 0.5 h.s. p.r.n. ACTIVITIES AND DIET: No restriction. CONDITION ON DISCHARGE: Good. PROGNOSIS: Good.
== END 2017-08-02 12:15 | disposition home or self-care (01) | DRG 881 ==
LOC: SED 08:32 → MHC 17:37
PROVIDERS: ADMIT Psychiatry & Neurology Psychiatry; ATTEND Psychiatry & Neurology Psychiatry
DX: F32.9 Major depressive disorder, single episode, unspecified (principal); R45.851 Suicidal ideations; Z65.3 Problems related to other legal circumstances; G47.00 Insomnia, unspecified; K58.9 Irritable bowel syndrome, unspecified

== ENCOUNTER 2017-08-14 16:29 | Emergency (ER) | payer MEDICAID, OTHER ==
[~2017-08-14] VITALS: Ht 165.1 cm; Wt 64.5 kg
[~2017-08-14 16:29] MED LIST changes: +CITA10TA9 PO; +LORA-303 PO; +QUET25TA73 PO
[2017-08-14 16:37] VITALS: BP 113/69; PULSE 71; RESP 12; O2SAT 96
[2017-08-14 17:27] VITALS: BP 111/70; PULSE 65; RESP 16; O2SAT 94
--- NOTE | 2017-08-14 18:00 | ED.REPORT ---
HPI-Extremity Problem Upper Date of Service Aug 14, 2017 ED Provider: Akhil Mc DO The pt is a 52 year old female with a hx of HTN, depression presenting to the ED complaining of tenderness on the inside of her right upper arm onset two days ago after a blood draw. She describes the pain as throbbing and tight. She denies ever having symptoms like this previously. Nursing Notes Stated Complaint: RIGHT ARM PAIN Chief Complaint: General Complaint Nursing Notes Reviewed: Yes Allergies: Coded Allergies: triamcinolone (Verified Allergy, Unknown, 08/14/17) lidocaine (Verified Adverse Reaction, Mild, dyaphoresis, shaking, 08/14/17) prednisone (Verified Adverse Reaction, Mild, 08/14/17) Scheduled Citalopram (Citalopram) 10 Mg Tablet 10 MG PO DAILY Pantoprazole DR (Protonix) 20 Mg Tablet 20 MG PO BID Scheduled PRN Lorazepam (Ativan) 1 Mg Tablet 1 MG PO HS PRN PRN Insomnia Quetiapine Fumarate (Quetiapine Fumarate) 25 Mg Tablet 50 MG PO HS PRN PRN Insomnia General Time Seen by MD: 17:59 Chief Complaint Arm injury right Hx Obtained From: Patient Arrived By: Walk-in Onset Occurred: 2 days ago Symptom Duration: Since onset Location: : Arm right Quality: Throbbing (and tight) Recent Healthcare: Recent doctor visit, Recent hospitalization Similar Sx Previous: No Past Medical History Past Medical History Notes: h/o multiple ED visits Patient reports being worked up for [place] by diabetic educator Followed at [facility] Past Medical History R wrist tendonitis Chronic symptoms of dehydration - currently being worked up for SIBO by PCP Hypertension cibo- bowel infection treating with herbs Severe insomnia Depression Reports: GERD Past Surgical History Endoscopy Reports: Hysterectomy Smoking History Never Smoker Social History Alcohol Use: Denies alcohol use Drug Use: Denies drug use Other Social History: Good social support, Ambulatory Status Independent Review of Systems Constitutional: Denies: Chills Musculoskeletal: Reports: Joint pain (right arm) Skin: Denies Diaphoresis Complete sys rev & neg: except as marked. Respiratory: Denies: Shortness of breath GI: Denies: Vomiting Physical Exam Initial Vital Signs Vital Signs (First) Date Time Temp Pulse Resp B/P Pulse Ox O2 Delivery O2 Flow Rate FiO2 08/14/17 16:37 37.1 71 12 113/69 96 Room Air Initial VS: Reviewed General/Constitutional: Awake, Alert, No acute distress Neck: Atraumatic, Supple, Full range of motion Respiratory / Chest: Atraumatic, Breath sounds NL, Breath sounds = bilat, No respiratory distress Cardiovascular: Heart rate NL, Regular rhythm, Heart sounds NL normal radial pulse Upper Extremity / MS: Atraumatic tenderness along right biceps no mass, induration, or fluctuation Skin: Atraumatic, Warm, Dry Neurologic: Oriented X3, Speech NL, No motor deficits, No sensory deficits Re-Eval/Medical Decision Med Decision/Clinical Course No obvious findings of vascular or infectious problem. Recommend conservative management and close follow-up. Re-Evaluation/Progress : Time of Eval: 18:05 Re-Evaluation/Progress Note: Discussed plan for discharge during initial evaluation. Patient understands and agrees with plan. All qeustions addressed at this time. Counseled Regarding: Diagnosis, Lab results, Need for follow-up, When/why to return to ED Discharge & Departure Impression: Primary Impression: Arm pain Laterality: right Qualified Code: M79.601 - Pain in right arm Disposition: Home Discharge Condition All VS Reviewed: Yes Condition: Improved Additional Instructions: Your exam is reassuring. There is no evidence of infection or vascular injury at this point. Use Tylenol, ibuprofen, and ice packs. Rest your arm. Follow up with your primary care doctor in the next 2 days as needed or sooner if your symptoms worsen, or return to the ER. Referrals: AMINA HALL MD (PCP) Ladonna Attestation Portions of this note were transcribed by Camden Botello. I, Dr. Mc personally performed the history, physical exam and medical decision-making; I reviewed and confirmed the accuracy of the information in the transcribed note. Signed by: Ladonna Hale, 08/14/2017 copies to: AMINA HALL MD, Timothy S DO Aug 14, 2017 18:00 Aug 14, 2017 18:04
[2017-08-14 18:15] VITALS: BP 112/70; PULSE 58; RESP 14; O2SAT 97
== END 2017-08-14 18:16 | disposition home or self-care (01) ==
LOC: SED 16:29
DX: M79.601 Pain in right arm (principal); I10 Essential (primary) hypertension; K21.9 Gastro-esophageal reflux disease without esophagitis; F32.9 Major depressive disorder, single episode, unspecified; Z90.710 Acquired absence of both cervix and uterus; Z88.4 Allergy status to anesthetic agent; Z88.8 Allergy status to other drugs, medicaments and biological substances